=== PATIENT | female | born 1975 | race Caucasian/White ===

== ENCOUNTER 2016-11-25 09:49 | Observation (INO) | payer BC ==
--- NOTE | 2016-11-25 09:58 | EDPHY ---
H & P Stated Complaint: 2 wk abd pain;pt thinks it's pancreatitis flare up;dental surg 2 days ago Time Seen by Provider: 11/25/16 09:58 - Personal History LMP (Females 10-55): 1-7 Days Ago Current Tetanus Diphtheria and Acellular Pertussis (TDAP): Yes - Medical/Surgical History Hx Asthma: No Hx Chronic Respiratory Disease: No Hx Diabetes: No Hx Cardiac Disease: No Hx Renal Disease: No Hx Cirrhosis: No Hx Alcoholism: No Hx HIV/AIDS: No Hx Splenectomy or Spleen Trauma: No Other PMH: Hx Pancreatitis-Apr 2014 - Social History Smoking Status: Current every day smoker Constitutional: Initial Vital Signs Temperature (C) 36.7 C 11/25/16 09:50 Heart Rate 78 11/25/16 09:50 Respiratory Rate 18 11/25/16 09:50 Blood Pressure 91/68 L 11/25/16 09:50 O2 Sat (%) 97 11/25/16 09:50 O2 Delivery Mode Room Air Allergies/Adverse Reactions: penicillin G [Penicillin G] Allergy (Mild, Verified 11/25/16 09:54) Rash Sulfa (Sulfonamide Antibiotics) Allergy (Mild, Verified 11/25/16 09:54) itchy Home Medications: Medication Instructions Recorded Citalopram Hydrobromide 20 mg PO DAILY@20 06/14/16 [Citalopram HBr] Omeprazole 20 mg PO DAILY 06/14/16 oxyCODONE/APAP 5/325 [Percocet 2 tab PO Q4 PRN #6 tab 06/16/16 5/325 (*)] traZODone [traZODONE 50MG (*)] 50 mg PO HS 11/25/16 Medical Decision Making ED Course/Re-evaluation: CHIEF COMPLAINT: Abdominal pain HISTORY OF PRESENT ILLNESS: This patient is a 41 year old female with history of recurrent pancreatitis complaining of "severe abdominal pain" worsening over the last two weeks. She endorses associated nausea and vomiting, and states she fees very hot. She was admitted in June of 2016 for pancreatitis, likely triggered by a fatty meal and alcohol consumption at [facility]. She states she had dental surgery on Wednesday, two days ago, but that her pain began before then. She has been seeing alternative doctors and trying acupuncture for relief of symptoms. She tried taking Omeprazole and Percocet this morning, but vomited shortly after. She denies alcohol use in the last six months. Her admission an work-up in June included negative MRCP, GI consult for EGD to rule out peptic ulcer disease, which was normal, and abdominal ultrasound, which was negative. REVIEW OF SYSTEMS: A 10 point review of systems was performed and is negative with the exception of the elements mentioned in the history of present illness. PHYSICAL EXAM: HR, BP, O2 Sat, RR. Temp noted General Appearance: Alert, well hydrated, appropriate, and non-toxic appearing. Head: Atraumatic without scalp tenderness or obvious injury Eyes: Pupils equal, round, reactive to light and accommodation, EOMI, no trauma , no injection. Nose: Atraumatic, no rhinorrhea, clear. Throat: There is no erythema or exudates, no lesions, normal tonsils, mucus membranes moist. Neck: Supple, nontender, no lymphadenopathy. Respiratory: No retractions, no distress, no wheezes, and no accessory muscle use. Lungs are clear to auscultation bilaterally. Cardiovascular: Regular rate and rhythm, no murmurs, rubs, or gallops. Good capillary refill all extremities. Gastrointestinal: Pain in epigastrium radiating through to her back. Abdomen is soft, non-distended, no masses, no rebound, no guarding, no peritoneal signs. Musculoskeletal: Normal active ROM of all extremities, atraumatic. Neurological: Alert, appropriate, and interactive. Non-focal neuro exam. Skin: No rashes, good turgor, no nodules on palpation. Past medical history: Pancreatitis, IBS, depression Past surgical history: Dental Family history: Noncontributory Social history: Current smoker. Significant other at bedside. Past medical records reviewed, including admission for IBS in June, and for pancreatitis in April,. DIFFERENTIAL DIAGNOSIS: The differential diagnosis for the patient's abdominal pain included but was not limited to pancreatitis, cholecystitis, appendicitis, pelvic inflammatory disease, ovarian cyst, ovarian torsion, urinary tract infection, ectopic . MEDICAL DECISION MAKING: This patient is a 41 year old female with history of pancreatitis and IBS presenting with abdominal pain and associated nausea and vomiting. She has been seeking alternative treatments including acupuncture for her symptoms. Physical exam reveals pain in her epigastric area, radiating to her back. Otherwise normal exam. Plan to order labs including CBC, CHEM, and liver lipase. Due to her recent admission and workup (discussed in HPI), we will hold on imaging at this time. Plan to administer IV fluids, Dilaudid, and Ketoralac. Labs reveal high lipase in the mid 900s. Plan to admit for pancreatitis. 11:[address] Spoke with [address] service. Dr. Blandon accepts admission for pancreatitis. - Data Points Laboratory Results: Laboratory Results 11/25/16 10:00 11/25/16 10:00 11/25/16 11/25/16 11/25/16 10:00 10:00 10:00 WBC 10.86 10^3/uL H 10^3/uL (3.80-9.50) RBC 5.08 10^6/uL 10^6/uL (4.18-5.33) Hgb 15.5 g/dL g/dL (12.6-16.3) Hct 45.6 % % (38.0-47.0) MCV 89.8 fL fL (81.5-99.8) MCH 30.5 pg pg (27.9-34.1) MCHC 34.0 g/dL g/dL (32.4-36.7) RDW 12.2 % % (11.5-15.2) Plt Count 238 10^3/uL 10^3/uL (150-400) MPV 10.5 fL fL (8.7-11.7) Neut % (Auto) Not Reported Lymph % (Auto) Not Reported [place] % (Auto) Not Reported Eos % (Auto) Not Reported Baso % (Auto) Not Reported Nucleat RBC Rel Count 0.0 % % (0.0-0.2) Absolute Neuts (auto) Not Reported Absolute Lymphs (auto) Not Reported Absolute Monos (auto) Not Reported Absolute Eos (auto) Not Reported Absolute Basos (auto) Not Reported Absolute Nucleated RBC 0.00 10^3/uL 10^3/uL (0-0.01) Immature Gran % Not Reported Seg Neutrophils % 31 % % Band Neutrophils % 9 % % Lymphocytes % 29 % % Monocytes % 4 % % Eosinophils % 25 % % Basophils % 2 % % Immature Gran # Not Reported Absolute Seg Neuts 3.37 10^/uL 10^/uL (1.70-6.50) Absolute Band Neuts 0.98 10^3/uL H 10^3/uL (0.00-0.70) Absolute Lymphocytes 3.15 10^3/uL H 10^3/uL (1.00-3.00) Absolute Monocytes 0.43 10^3/uL 10^3/uL (0.30-0.80) Absolute Eosinophils 2.72 10^3/uL H 10^3/uL (0.03-0.40) Absolute Basophils 0.22 10^3/uL H 10^3/uL (0.02-0.10) Atypical Lymphocytes 3+ H Platelet Estimate ADEQUATE (ADEQ) Oval Macrocytes 1+ H Smear Review By Pending Sodium 142 mEq/L mEq/L (134-144) Potassium 4.4 mEq/L mEq/L (3.5-5.2) Chloride 105 mEq/L mEq/L (97-110) Carbon Dioxide 24 mEq/l mEq/l (22-31) Anion Gap 13 mEq/L mEq/L (8-16) BUN 11 mg/dL mg/dL (7-23) Creatinine 0.8 mg/dL mg/dL (0.6-1.0) Estimated GFR > 60 Glucose 82 mg/dL mg/dL (70-100) Calcium 9.8 mg/dL mg/dL (8.5-10.4) Total Bilirubin 0.8 mg/dL mg/dL (0.1-1.4) Conjugated Bilirubin 0.4 mg/dL mg/dL (0.0-0.5) Unconjugated Bilirubin 0.4 mg/dL mg/dL (0.0-1.1) AST 26 IU/L IU/L (14-46) ALT 33 IU/L IU/L (9-52) Alkaline Phosphatase 61 IU/L IU/L (38-126) Total Protein 7.7 g/dL g/dL (6.3-8.2) Albumin 4.6 g/dL g/dL (3.5-5.0) Lipase 933.0 IU/L H IU/L (23-300) Beta HCG, Qual NEGATIVE Medications Given: Discontinued Medications Hydromorphone HCl (Dilaudid) 1 mg IVP EDNOW ONE Stop: 11/25/16 10:11 Last Admin: 11/25/16 10:36 Dose: 1 mg Hydromorphone HCl (Dilaudid) 1 mg IVP EDNOW ONE Stop: 11/25/16 11:30 Last Admin: 11/25/16 11:29 Dose: 1 mg Sodium Chloride (Ns) 1,000 mls @ 0 mls/hr IV ONCE ONE PRN Reason: Wide Open Stop: 11/25/16 10:11 Last Admin: 11/25/16 10:37 Dose: 1,000 mls Ketorolac Tromethamine (Toradol) 30 mg IVP EDNOW ONE Stop: 11/25/16 10:11 Last Admin: 11/25/16 10:37 Dose: 30 mg Departure - Departure Disposition: [facility] Inpatient Acute Clinical Impression: Pancreatitis Qualifiers: Chronicity: chronic Pancreatitis type: other Qualified Code(s): K86.1 - Other chronic pancreatitis Condition: Fair Referrals: RACHEL LEIJA [Primary Care Provider] - As per Instructions Report Scribed for: Elan Cruz Report Scribed by: Veda Olguin Date of Report: 11/25/16 Time of Report: 11:32
[2016-11-25] MEDS ORDERED: NS 1,000 ML IV ONE (10:10)
[2016-11-25] MEDS ORDERED: HYDROmorphONE/DILAUDID 1 MG/ML SYR IVP ONE ×2 (10:10→11:29)
[2016-11-25] MEDS ORDERED: KETOROLAC 30 MG/1 ML SDV IVP ONE (10:10)
[2016-11-25 10:23] LABS: ADD DIFF? YES; ADD MORPH? NO; ADD SCAN? NO; ATYPICAL LYMPHOCYTE FLAG 10 (0-99); FRAGMENT RBC FLAG 0 (0-99); HEMATOCRIT 45.6 % (38.0-47.0); HEMOGLOBIN 15.5 g/dL (12.6-16.3); LEFT SHIFT FLG 0 (0-99); LIPEMIA HEMOLYSIS FLAG 90 (0-99); MEAN CELL HEMOGLOBIN 30.5 pg (27.9-34.1); MEAN CELL VOLUME 89.8 fL (81.5-99.8); MEAN PLATELET VOLUME 10.5 fL (8.7-11.7); PLATELET CLUMPS FLAG 0 (0-99); PLATELET COUNT 238 10^3/uL (150-400); RED BLOOD CELL COUNT 5.08 10^6/uL (4.18-5.33); RED CELL DISTRIBUTION WIDTH 12.2 % (11.5-15.2)
[2016-11-25 10:50] LABS: ALANINE AMINOTRANSFERASE 33 IU/L (9-52); ALBUMIN 4.6 g/dL (3.5-5.0); ALKALINE PHOSPHATASE 61 IU/L (38-126); ANION GAP 13 mEq/L (8-16); ASPARTATE AMINOTRANSFERASE 26 IU/L (14-46); BILIRUBIN,TOTAL 0.8 mg/dL (0.1-1.4); BILIRUBIN-CONJUGATED 0.4 mg/dL (0.0-0.5); BILIRUBIN-UNCONJUGATED 0.4 mg/dL (0.0-1.1); CALCIUM 9.8 mg/dL (8.5-10.4); CARBON DIOXIDE 24 mEq/l (22-31); CHLORIDE 105 mEq/L (97-110); CREATININE 0.8 mg/dL (0.6-1.0); GLOMERULAR FILTRATION RATE > 60; GLUCOSE 82 mg/dL (70-100); POTASSIUM 4.4 mEq/L (3.5-5.2); SODIUM 142 mEq/L (134-144); TOTAL PROTEIN 7.7 g/dL (6.3-8.2)
[2016-11-25] MEDS ORDERED: HYDROmorphONE/DILAUDID 1 MG/ML SYR ONE (11:31)
[2016-11-25 11:35] LABS: PLATELET ESTIMATE ADEQUATE (ADEQ)
[2016-11-25 11:36] LABS: MACROCYTES 1+
[2016-11-25] MEDS ORDERED: ONDANSETRON 4 MG/2 ML VIAL IVP PRN (14:03)
[2016-11-25] MEDS ORDERED: ACETAMINOPHEN 325 MG TAB PO PRN (14:03)
[2016-11-25] MEDS ORDERED: ONDANSETRON DISINTEGRATING 4 MG TAB PO PRN (14:03)
[2016-11-25] MEDS ORDERED: MBX SOLN 30 ML BOTTLE PO PRN (14:20)
[2016-11-25] MEDS ORDERED: NS 1,000 ML IV SCH (14:30)
[2016-11-25] MEDS: HYDROmorphONE/DILAUDID 1 MG/ML SYR IVP PRN ×2 (15:00→20:55)
--- NOTE | 2016-11-25 15:01 | GHP ---
[f rep st] HISTORY AND PHYSICAL DATE OF ADMISSION: 11/25/2016 CHIEF COMPLAINT: Abdominal pain. HISTORY OF PRESENT ILLNESS: Patient is a 41-year-old female, previously hospitalized 2 times for pancreatitis. First admission was in 2013, thought secondary to a high fat diet. She had a subsequent admission in June of 2016, which was unrevealing with a negative MRCP, EGD and ultrasound. 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 She was offered a CAT scan at that time, which she declined. Since that time, she has been eating a very clean diet. No alcohol since May 2016. She has been seeing a naturopathic doctor, and at one point was diagnosed with Lyme disease. She states through treatment by her, the Lyme disease symptoms have improved. She has been receiving energy work per that practitioner remotely from [place]. For the past 2 weeks, she has been complaining of epigastric pain that is hot, burning in nature, with radiation to her back. She recently underwent 2 dental surgeries for a crown, last being on Wednesday. She was prescribed azithromycin, and only took 2 doses, last Wednesday night. Had an episode of nonbilious, nonbloody emesis on Wednesday, as well as this morning after drinking a hemp protein smoothie. She noticed the symptoms can be exacerbated by her period, which she had last week. Reports chills. No fevers or sweats. No diarrhea. Had a normal bowel movement today. REVIEW OF SYSTEMS: I completed a 10-point review of systems, negative except as noted in HPI. PAST MEDICAL HISTORY: 1. depression. 2. Anxiety. SURGICAL HISTORY: Oral surgeries. SOCIAL HISTORY: Lives in [facility], has a child. No alcohol since May 2016, uses tincture of CBD every 3 days. No tobacco. FAMILY HISTORY: Father of an MS in 2003. Mother is healthy, but maternal grandmother with breast cancer. HOME MEDICATIONS: Celexa, omeprazole, trazodone, Percocet recently, after dental surgery. ALLERGIES: Penicillin, sulfas. PHYSICAL EXAMINATION: VITAL SIGNS: Temperature 36.5, blood pressure 106/67, heart rate is in the 60s, respirations 16, 92% on room air. GENERAL: Patient is well appearing, sitting up, in no acute distress. HEENT: PERRLA. EOMI. Oropharynx clear. CV: Regular rate and rhythm. No murmurs, gallops, rubs. LUNGS: Clear to auscultation bilaterally. ABDOMEN: Soft, nondistended, mild epigastric tenderness. No rebound or guarding. Quiet bowel sounds throughout. : No suprapubic or CVA tenderness. MUSCULOSKELETAL: 5/5 upper and lower extremity strength. NEURO: 2 through 12 intact. PSYCH: Alert and oriented x3. LABS: WBC 10, hemoglobin 15, hematocrit 45, platelets 238. Sodium 142, potassium 4.5, chloride 105, carbon dioxide 24, creatinine 0.8, glucose 82, calcium 9.8. Total bilirubin 0.8, AST 26, ALT 33, total protein 7.7, albumin 4.6, lipase 933. ASSESSMENT AND PLAN: 1. Acute abdominal pain: Differential includes recurrent pancreatitis, irritable bowel syndrome, gastroesophageal reflux disease. The patient was admitted in June with a thorough evaluation, including negative MRCP, EGD, and imaging. She does have an elevated lipase of 900 here. She denies alcohol. We will check triglycerides, as well as an abdominal ultrasound. 2. Acute pancreatitis: Unclear etiology. The patient denies alcohol. Imaging pending. Supportive care with IV opioids, as well as fluids. 3. Depression. Continue home medications. 4. Anxiety. Continue citalopram. DIET: N.p.o. Advance when less pain. DISPOSITION: Patient warrants observation admission given acute abdominal pain , warranting IV opioids. /[id number]/MODL MTDD
[2016-11-25 15:06] LABS: COLOR PALE YELLOW; LEUKOCYTE ESTERASE,URINE NEGATIVE (NEGATIVE); NITRITE,URINE NEGATIVE (NEGATIVE)
[2016-11-25] MEDS: HYDROmorphONE/DILAUDID 2 MG TAB PO PRN (17:28)
[2016-11-25] MEDS ORDERED: CITALOPRAM 20 MG TAB PO SCH (21:00)
[2016-11-25] MEDS ORDERED: traZODone 50 MG TAB PO SCH (21:00)
[2016-11-26] MEDS: HYDROmorphONE/DILAUDID 2 MG TAB PO PRN ×2 (00:37→12:35)
[2016-11-26] MEDS: HYDROmorphONE/DILAUDID 1 MG/ML SYR IVP PRN ×2 (05:02→14:55)
[2016-11-26] MEDS ORDERED: NON-FORMULARY NEW DRUG (Omeprazole [Omeprazole] 20 MG) PO SCH (09:00)
[2016-11-26] MEDS ORDERED: PANTOPRAZOLE SODIUM 40 MG TAB PO SCH (09:00)
[2016-11-26 09:15] VITALS: PULSE 73
[2016-11-26 13:28] VITALS: BP 98/59; RESP 16; TEMP 98; O2SAT 98
--- NOTE | 2016-11-26 15:50 | GDS ---
[f rep st] DISCHARGE SUMMARY DIAGNOSES: 1. Acute pancreatitis. 2. Abdominal pain. 3. depression. 4. Anxiety. CONSULTATIONS: None. PROCEDURES: None. HOSPITAL COURSE: A 41-year-old female with 2 previous hospitalizations for pancreatitis. First adm ission was in 2013 and was thought to be secondary to a high-fat diet. At that time, she had a nega tive MRCP, EGD, and ultrasound. Since then, she has seen 2 naturopathic doctors and follows a very clean diet. Despite this, with her menstrual period every month, she will have epigastric abdominal pain. She has heavy cramping and tension, which has been improved with Prozac. Despite this, her menstrual periods are heavy with heavy clotting and significant cramping. In the last 2 weeks, she has come with epigastric pain, which radiated through to her back. On evaluation, she was noted to have an elevated lipase at 900. She was admitted for pain control and IV fluids. Post admission, s he improved. White count was 10,000. Lipase on admission was 933 and a beta HCG was negative. The patient was able to tolerate a regular diet and desired to be discharged. She is quite aware of he r condition and watches her diet closely to avoid episodes of pain. An ultrasound of the abdomen sh owed no abnormalities of the pancreas, gallbladder, or liver. There was a 1 cm left renal cyst inci dentally noted. DISCHARGE MEDICATIONS: Her medications will include Celexa 20 mg daily, omeprazole 20 mg daily, tra zodone 50 mg h.s., and Percocet 5/325 mg tablets, #14. She is to take 2 tabs p.o. q.4-6h. p.r.n. pa in. PLAN: The patient is discharged to her home care, and she will watch her diet closely. She has bee n given referral to GI of the [facility], and an appointment has already been made for this by the john ent herself. I have also given her a referral to Jostin Thorpe, an integrative medicine doctor here in [place]. 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 I have strongly advised her to pursue this further with GI of the [facility]. It is clear that there i s a significant problem which has not been clarified yet. I have explained to her that recurrent ep isodes of pancreatitis will only be getting more episodes of pancreatitis. TIME: This discharge required 50 minutes, greater than 50% to appliance counselor and coordinate the care with her providers. /[id number]/MODL
== END 2016-11-26 16:23 | disposition home or self-care (01) ==
LOC: F1N 17:08
PROVIDERS: ADMIT Internal Medicine; ATTEND Internal Medicine Pulmonary Disease
DX: K85.90 Acute pancreatitis without necrosis or infection, unspecified (principal); R10.9 Unspecified abdominal pain; K58.9 Irritable bowel syndrome, unspecified; F32.9 Major depressive disorder, single episode, unspecified; F41.9 Anxiety disorder, unspecified; N28.1 Cyst of kidney, acquired; F17.200 Nicotine dependence, unspecified, uncomplicated; Z88.0 Allergy status to penicillin; Z88.2 Allergy status to sulfonamides
CPT/HCPCS: 76700; G0378; J1170; J1885

== ENCOUNTER 2016-11-30 01:59 | Emergency (ER) | payer BC ==
[2016-11-30 02:05] VITALS: TEMP 98.2
[2016-11-30] MEDS ORDERED: NS 1,000 ML IV ONE (02:14)
[2016-11-30] MEDS ORDERED: HYDROmorphONE/DILAUDID 1 MG/ML SYR IVP ONE (02:14)
--- NOTE | 2016-11-30 02:14 | EDPHY ---
H & P Stated Complaint: RUQ to right back pain; recent d/c for pancreatitis HPI/ROS: HPI CHIEF COMPLAINT: Abdominal pain, pancreatitis HISTORY OF PRESENT ILLNESS: This patient very pleasant 41-year-old female significant past medical history for pancreatitis, she was recently hospitalized here for acute pancreatitis, however bag to be discharged from the hospital to go to a wedding in [place]. She went to the [facility] and states that she had ongoing epigastric abdominal pain radiates to her back. She states the pain has been persistent and getting worse over the past 3-4 days. Associated nausea vomiting. No hematemesis. States pain feels exactly like her typical pancreatitis. Of the patient on 11/25 had a normal ultrasound of her abdomen. No gallstones. Lipase was 900. She denies drinking any alcohol at the wedding. States she has had a lean diet. No lower abdominal pain or urinary symptoms. No fever. Patient does tell me that her pain is 6/ 10. Had ongoing nausea vomiting today. Past Medical History: Pancreatitis, acute abdominal pain, depression Past Surgical History: No recent surgical history Social History: Denies daily use of drugs alcohol, or tobacco. Family History: Noncontributory ROS REVIEW OF SYSTEMS: A comprehensive 10 point review of systems is otherwise negative aside from elements mentioned in the history of present illness. Exam Constitutional triage nursing summary reviewed, vital signs reviewed, awake/ alert. Eyes normal conjunctivae and sclera, EOMI, PERRLA. HENT normal inspection, atraumatic, moist mucus membranes, no epistaxis, neck supple/ no meningismus, no raccoon eyes. Respiratory clear to auscultation bilaterally, normal breath sounds, no respiratory distress, no wheezing. Cardiovascular rate normal, regular rhythm, no murmur, no edema, distal pulses normal. Gastrointestinal soft, tender to palpation epigastric region, no rebound, no guarding, normal bowel sounds, no distension, no pulsatile mass. Genitourinary no CVA tenderness. Musculoskeletal no midline vertebral tenderness, full range of motion, no calf swelling, no tenderness of extremities, no meningismus, good pulses, neurovascularly intact. Skin pink, warm, & dry, no rash, skin atraumatic. Neurologic awake, alert and oriented x 3, AAOx3, moves all 4 extremities equally, motor intact, sensory intact, CN II-XII intact, normal cerebellar, normal vision, normal speech. Psychiatric normal mood/affect. Heme/Lymph/Immune no lymphadenopathy. Differential diagnosis includes but is not limited to and in no particular order : Acute on chronic pancreatitis Bowel obstruction, appendicitis, gallbladder disease, diverticulitis, colitis, enteritis, perforated viscus, gastritis, GERD , esophagitis, urinary tract infection, pyelonephritis, kidney stones Medical Decision Making: Plan for this patient IV establishment, IV fluid bolus normal saline 1 L, IV Zofran for nausea, IV Dilaudid for acute pain control. Check lipase and abdominal labs. I did review her recent lab work and ultrasound. No indication to reimage at this time. Re-evaluation: CT scan of the abdomen pelvis with IV contrast The results of the study are negative for anything acute specifically a shows constipation but no acute inflammatory change around the pancreas or pseudocyst. She does have a right ovarian cyst small. Minimal free fluid in the pelvis. The study was read by Dr. Vo. I viewed the images myself on the PACS system. 0417AM: Re-evaluation at this time. Blood work reviewed lipase is normal. Electrolytes are not disturbed. CT scan shows no acute inflammatory process. 0421AM: Re-evaluation at this time patient is resting comfortably. Re- examination abdomen is soft nontender no guarding or peritoneal signs she is not vomiting. Blood work is normal. Lipase normal CT scan negative for anything acute. She does have a gastroenterology appointment tomorrow do recommend that she keeps this. There is constipation seen on her CT scan recommend MiraLax. Drink lots of fluids return emergency room if there is any worsening symptoms includes abdominal pain, fever vomiting. She understands Source: Patient - Personal History LMP (Females 10-55): 8-14 Days Ago Current Tetanus/Diphtheria Vaccine: Unsure Current Tetanus Diphtheria and Acellular Pertussis (TDAP): Unsure - Medical/Surgical History Hx Asthma: No Hx Chronic Respiratory Disease: No Hx Diabetes: No Hx Cardiac Disease: No Hx Renal Disease: No Hx Cirrhosis: No Hx Alcoholism: No Hx HIV/AIDS: No Hx Splenectomy or Spleen Trauma: No Other PMH: Hx Pancreatitis-Apr 2014, depression, anxiety, Lyme disease. PSH: dental surgeries - Social History Smoking Status: Current some day smoker Constitutional: Initial Vital Signs Temperature (C) 36.8 C 11/30/16 02:03 Heart Rate 66 11/30/16 02:03 Respiratory Rate 16 05/22/17 02:03 Blood Pressure 128/72 H 11/30/16 02:03 O2 Sat (%) 99 11/30/16 02:03 O2 Delivery Mode Room Air Allergies/Adverse Reactions: penicillin G [Penicillin G] Allergy (Mild, Verified 11/25/16 09:54) Rash Sulfa (Sulfonamide Antibiotics) Allergy (Mild, Verified 11/25/16 09:54) itchy Home Medications: Medication Instructions Recorded Citalopram Hydrobromide 20 mg PO HS 06/14/16 [Citalopram HBr] Omeprazole 20 mg PO DAILY 06/14/16 traZODone [traZODONE 50MG (*)] 50 mg PO HS 11/25/16 oxyCODONE/APAP 5/325 [Percocet 2 tab PO Q4 PRN #14 tab 11/26/16 5/325 (*)] DIAZEPAM 11/30/16 Polyethylene Glycol 3350 [Miralax 17 gm PO DAILY #2 pkt 11/30/16 17 gm (*)] Medical Decision Making - Data Points Laboratory Results: Laboratory Results 11/30/16 02:30 11/30/16 02:30 11/30/16 11/30/16 11/30/16 02:30 02:30 02:30 WBC 10.59 10^3/uL H 10^3/uL (3.80-9.50) RBC 4.30 10^6/uL 10^6/uL (4.18-5.33) Hgb 13.1 g/dL g/dL (12.6-16.3) Hct 39.0 % % (38.0-47.0) MCV 90.7 fL fL (81.5-99.8) MCH 30.5 pg pg (27.9-34.1) MCHC 33.6 g/dL g/dL (32.4-36.7) RDW 12.2 % % (11.5-15.2) Plt Count 197 10^3/uL 10^3/uL (150-400) MPV 10.5 fL fL (8.7-11.7) Neut % (Auto) Not Reported Lymph % (Auto) Not Reported [place] % (Auto) Not Reported Eos % (Auto) Not Reported Baso % (Auto) Not Reported Nucleat RBC Rel Count 0.0 % % (0.0-0.2) Absolute Neuts (auto) Not Reported Absolute Lymphs (auto) Not Reported Absolute Monos (auto) Not Reported Absolute Eos (auto) Not Reported Absolute Basos (auto) Not Reported Absolute Nucleated RBC 0.00 10^3/uL 10^3/uL (0-0.01) Immature Gran % Not Reported Seg Neutrophils % 26 % % Band Neutrophils % 1 % % Lymphocytes % 36 % % Monocytes % 5 % % Eosinophils % 32 % % Immature Gran # Not Reported Absolute Seg Neuts 2.75 10^/uL 10^/uL (1.70-6.50) Absolute Band Neuts 0.11 10^3/uL 10^3/uL (0.00-0.70) Absolute Lymphocytes 3.81 10^3/uL H 10^3/uL (1.00-3.00) Absolute Monocytes 0.53 10^3/uL 10^3/uL (0.30-0.80) Absolute Eosinophils 3.39 10^3/uL H 10^3/uL (0.03-0.40) RBC/WBC/PLT Morphology NORMAL (NORMAL) Atypical Lymphocytes 1+ H Platelet Estimate ADEQUATE (ADEQ) Smear Review By Pending Sodium 142 mEq/L mEq/L (134-144) Potassium 4.0 mEq/L mEq/L (3.5-5.2) Chloride 103 mEq/L mEq/L (97-110) Carbon Dioxide 30 mEq/l mEq/l (22-31) Anion Gap 9 mEq/L mEq/L (8-16) BUN 8 mg/dL mg/dL (7-23) Creatinine 0.7 mg/dL mg/dL (0.6-1.0) Estimated GFR > 60 Glucose 80 mg/dL mg/dL (70-100) Calcium 9.3 mg/dL mg/dL (8.5-10.4) Total Bilirubin 0.4 mg/dL mg/dL (0.1-1.4) Conjugated Bilirubin 0.3 mg/dL mg/dL (0.0-0.5) Unconjugated Bilirubin 0.1 mg/dL mg/dL (0.0-1.1) AST 37 IU/L IU/L (14-46) ALT 40 IU/L IU/L (9-52) Alkaline Phosphatase 45 IU/L IU/L (38-126) Troponin I < 0.012 ng/mL ng/mL (0-0.034) Total Protein 7.1 g/dL g/dL (6.3-8.2) Albumin 4.3 g/dL g/dL (3.5-5.0) Lipase 239.0 IU/L IU/L (23-300) Beta HCG, Qual NEGATIVE Urine Color Urine Appearance Urine pH Ur Specific [place] Urine Protein Urine Ketones Urine Blood Urine Nitrate Urine Bilirubin Urine Urobilinogen Ur Leukocyte Esterase Urine Glucose 11/30/16 02:05 WBC RBC Hgb Hct MCV MCH MCHC RDW Plt Count MPV Neut % (Auto) Lymph % (Auto) [place] % (Auto) Eos % (Auto) Baso % (Auto) Nucleat RBC Rel Count Absolute Neuts (auto) Absolute Lymphs (auto) Absolute Monos (auto) Absolute Eos (auto) Absolute Basos (auto) Absolute Nucleated RBC Immature Gran % Seg Neutrophils % Band Neutrophils % Lymphocytes % Monocytes % Eosinophils % Immature Gran # Absolute Seg Neuts Absolute Band Neuts Absolute Lymphocytes Absolute Monocytes Absolute Eosinophils RBC/WBC/PLT Morphology Atypical Lymphocytes Platelet Estimate Smear Review By Sodium Potassium Chloride Carbon Dioxide Anion Gap BUN Creatinine Estimated GFR Glucose Calcium Total Bilirubin Conjugated Bilirubin Unconjugated Bilirubin AST ALT Alkaline Phosphatase Troponin I Total Protein Albumin Lipase Beta HCG, Qual Urine Color PALE YELLOW Urine Appearance CLEAR Urine pH 8.0 H (5.0-7.5) Ur Specific [place] 1.003 (1.002-1.030) Urine Protein NEGATIVE (NEGATIVE) Urine Ketones NEGATIVE (NEGATIVE) Urine Blood NEGATIVE (NEGATIVE) Urine Nitrate NEGATIVE (NEGATIVE) Urine Bilirubin NEGATIVE (NEGATIVE) Urine Urobilinogen NEGATIVE EU EU (0.2-1.0) Ur Leukocyte Esterase NEGATIVE (NEGATIVE) Urine Glucose NEGATIVE (NEGATIVE) Departure - Departure Disposition: Home, Routine, Self-Care Clinical Impression: Abdominal pain Qualifiers: Abdominal location: generalized Qualified Code(s): R10.84 - Generalized abdominal pain Condition: Good Instructions: Abdominal Pain (ED) Additional Instructions: 1. Eat a bland diet for next 24-48 hours. 2. Return emergency room if develops any worsening symptoms includes abdominal pain fever vomiting. 3. Your CT scan did show constipation recommend MiraLax. 4. Follow up with Gastroenterology a previously scheduled appointment tomorrow. Referrals: RACHEL LEIJA [Primary Care Provider] - As per Instructions Prescriptions: Polyethylene Glycol 3350 [Miralax 17 gm (*)] 17 gm PO DAILY #2 pkt
[2016-11-30 02:21] LABS: COLOR PALE YELLOW; LEUKOCYTE ESTERASE,URINE NEGATIVE (NEGATIVE); NITRITE,URINE NEGATIVE (NEGATIVE)
[2016-11-30] MEDS ORDERED: ONDANSETRON 4 MG/2 ML VIAL IVP ONE (02:29)
[2016-11-30 02:43] LABS: ADD DIFF? YES; ADD MORPH? NO; ADD SCAN? NO; ATYPICAL LYMPHOCYTE FLAG 0 (0-99); FRAGMENT RBC FLAG 0 (0-99); HEMOGLOBIN 13.1 g/dL (12.6-16.3); LEFT SHIFT FLG 0 (0-99); LIPEMIA HEMOLYSIS FLAG 80 (0-99); MEAN CELL HEMOGLOBIN 30.5 pg (27.9-34.1); MEAN CELL HEMOGLOBIN CONCENTR. 33.6 g/dL (32.4-36.7); MEAN CELL VOLUME 90.7 fL (81.5-99.8); MEAN PLATELET VOLUME 10.5 fL (8.7-11.7); PLATELET CLUMPS FLAG 10 (0-99); PLATELET COUNT 197 10^3/uL (150-400); RED CELL DISTRIBUTION WIDTH 12.2 % (11.5-15.2)
[2016-11-30 02:57] LABS: ALANINE AMINOTRANSFERASE 40 IU/L (9-52); ALBUMIN 4.3 g/dL (3.5-5.0); ALKALINE PHOSPHATASE 45 IU/L (38-126); ANION GAP 9 mEq/L (8-16); ASPARTATE AMINOTRANSFERASE 37 IU/L (14-46); BILIRUBIN,TOTAL 0.4 mg/dL (0.1-1.4); BILIRUBIN-CONJUGATED 0.3 mg/dL (0.0-0.5); BILIRUBIN-UNCONJUGATED 0.1 mg/dL (0.0-1.1); CALCIUM 9.3 mg/dL (8.5-10.4); CARBON DIOXIDE 30 mEq/l (22-31); CHLORIDE 103 mEq/L (97-110); CREATININE 0.7 mg/dL (0.6-1.0); GLOMERULAR FILTRATION RATE > 60; GLUCOSE 80 mg/dL (70-100); SODIUM 142 mEq/L (134-144); TOTAL PROTEIN 7.1 g/dL (6.3-8.2)
[2016-11-30 03:08] LABS: TROPONIN I < 0.012 ng/mL (0-0.034)
[2016-11-30] MEDS ORDERED: IOPAMIDOL (ISOVUE-300) 100 ML BTL ONE (03:25)
[2016-11-30 03:47] LABS: PLATELET ESTIMATE ADEQUATE (ADEQ)
[2016-11-30 04:16] VITALS: BP 103/68; PULSE 67; RESP 15; O2SAT 97
== END 2016-11-30 04:42 | disposition home or self-care (01) ==
DX: R10.84 Generalized abdominal pain (principal); F17.200 Nicotine dependence, unspecified, uncomplicated
CPT/HCPCS: 96374; J1170; J2405; Q9967

== ENCOUNTER 2016-12-11 14:23 | Emergency (ER) | payer BC ==
[2016-12-11 14:32] VITALS: RESP 16; TEMP 97.3
[2016-12-11 15:04] LABS: % IMMATURE GRANULYOCYTES 0.2 % (0.0-1.1); ABSOLUTE IMMATURE GRANULOCYTES 0.01 10^3/uL (0.00-0.10); ADD DIFF? NO; ADD MORPH? NO; ADD SCAN? NO; ATYPICAL LYMPHOCYTE FLAG 10 (0-99); FRAGMENT RBC FLAG 0 (0-99); HEMATOCRIT 42.6 % (38.0-47.0); HEMOGLOBIN 14.4 g/dL (12.6-16.3); LEFT SHIFT FLG 0 (0-99); LIPEMIA HEMOLYSIS FLAG 90 (0-99); MEAN CELL HEMOGLOBIN 30.6 pg (27.9-34.1); MEAN CELL HEMOGLOBIN CONCENTR. 33.8 g/dL (32.4-36.7); MEAN CELL VOLUME 90.4 fL (81.5-99.8); MEAN PLATELET VOLUME 10.5 fL (8.7-11.7); PLATELET CLUMPS FLAG 20 (0-99); PLATELET COUNT 226 10^3/uL (150-400); RED BLOOD CELL COUNT 4.71 10^6/uL (4.18-5.33)
[2016-12-11] MEDS ORDERED: ONDANSETRON 4 MG/2 ML VIAL IVP ONE (15:06)
[2016-12-11] MEDS ORDERED: NS 1,000 ML IV ONE (15:06)
--- NOTE | 2016-12-11 15:06 | EDPHY ---
H & P Stated Complaint: left upper abdomianl pain, vomiting diarrhea HX of pancreatitis Time Seen by Provider: 12/11/16 14:48 HPI/ROS: Chief Complaint: Abdominal pain HPI: A 41-year-old female with a history of recurrent idiopathic pancreatitis since 2013 presenting with worsening abdominal pain yesterday and today. She has also had some diarrhea and vomiting associated with this. Pain is about a 7 /10. She went to see her primary care physician today sent in for further evaluation. Denies any melena or hematochezia. No hematemesis. The pain is described in the epigastrium radiating to her back. Stool is loose to watery. Multiple times a day. She has decreased her oxycodone down to 1/2 5/325 per day. This is down from 4 a day for about 3 weeks ago. She does have a thread spooler who is currently evaluating her for this. No fevers or chills. No chest pain or shortness of breath. There are no aggravating or alleviating factors. Patient also states her last menstrual period is now and has noted that she gets flares of her pancreatitis when she has her period. Does not have a history of endometriosis that she is aware of ROS: 10 point Review of Systems is negative except as noted in the HPI. PMH: Idiopathic pancreatitis, depression Medications: Oxycodone and citalopram Allergies: Penicillin and sulfa Social History: No smoking, no alcohol, no recreational drug use Family History: non-contributory Physical Exam: Gen: Awake, Alert, No Distress HEENT: Nose: no rhinorrhea Eyes: PERRLA, EOMI Mouth: Moist mucosa Neck: Supple, no JVD Chest: nontender, lungs clear to auscultation Heart: S1, S2 normal, no murmur Abd: Soft, moderate epigastric tenderness with left upper quadrant tenderness, no right upper quadrant tenderness, some voluntary guarding in the epigastrium, no lower abdominal tenderness. Back: no CVA tenderness, no midline tenderness Ext: no edema, non-tender Skin: no rash Neuro: CN II-XII intact, Sensation grossly intact, Strength 5/5 in bilateral upper and lower extremities - Personal History LMP (Females 10-55): Now Current Tetanus Diphtheria and Acellular Pertussis (TDAP): Yes - Medical/Surgical History Hx Asthma: No Hx Chronic Respiratory Disease: No Hx Diabetes: No Hx Cardiac Disease: No Hx Renal Disease: No Hx Cirrhosis: No Hx Alcoholism: No Hx HIV/AIDS: No Hx Splenectomy or Spleen Trauma: No Other PMH: Hx Pancreatitis-Apr 2014, depression, anxiety, Lyme disease. PSH: dental surgeries - Social History Smoking Status: Current some day smoker Constitutional: Initial Vital Signs Temperature (C) 36.3 C 12/11/16 14:29 Heart Rate 70 12/11/16 14:29 Respiratory Rate 16 12/11/16 14:29 Blood Pressure 106/71 12/11/16 14:29 O2 Sat (%) 97 12/11/16 14:29 O2 Delivery Mode Room Air Allergies/Adverse Reactions: penicillin G [Penicillin G] Allergy (Mild, Verified 11/25/16 09:54) Rash Sulfa (Sulfonamide Antibiotics) Allergy (Mild, Verified 11/25/16 09:54) itchy Home Medications: Medication Instructions Recorded Citalopram Hydrobromide 20 mg PO HS 06/14/16 [Citalopram HBr] Omeprazole 20 mg PO DAILY 06/14/16 traZODone [traZODONE 50MG (*)] 50 mg PO HS 11/25/16 oxyCODONE/APAP 5/325 [Percocet 2 tab PO Q4 PRN #14 tab 11/26/16 5/325 (*)] Polyethylene Glycol 3350 [Miralax 17 gm PO DAILY #2 pkt 11/30/16 17 gm (*)] Medical Decision Making ED Course/Re-evaluation: Patient's blood work is normal. Lipase is normal. Liver functions normal. CBC is normal. She is not . Urinalysis shows hematuria consistent with her menses. Patient's pain is significantly better. Repeat examination shows a soft benign abdomen. There is no evidence of acute inflammation or infection at this time. Will discharge with follow up with thread spooler next week, return for worsening. - Data Points Laboratory Results: Laboratory Results 12/11/16 14:50 12/11/16 14:50 12/11/16 12/11/16 12/11/16 15:50 14:50 14:50 WBC RBC Hgb Hct MCV MCH MCHC RDW Plt Count MPV Neut % (Auto) Lymph % (Auto) [place] % (Auto) Eos % (Auto) Baso % (Auto) Nucleat RBC Rel Count Absolute Neuts (auto) Absolute Lymphs (auto) Absolute Monos (auto) Absolute Eos (auto) Absolute Basos (auto) Absolute Nucleated RBC Immature Gran % Immature Gran # Sodium 140 mEq/L mEq/L (134-144) Potassium 4.5 mEq/L mEq/L (3.5-5.2) Chloride 105 mEq/L mEq/L (97-110) Carbon Dioxide 24 mEq/l mEq/l (22-31) Anion Gap 11 mEq/L mEq/L (8-16) BUN 8 mg/dL mg/dL (7-23) Creatinine 0.7 mg/dL mg/dL (0.6-1.0) Estimated GFR > 60 Glucose 82 mg/dL mg/dL (70-100) Calcium 9.7 mg/dL mg/dL (8.5-10.4) Total Bilirubin 0.6 mg/dL mg/dL (0.1-1.4) Conjugated Bilirubin 0.3 mg/dL mg/dL (0.0-0.5) Unconjugated Bilirubin 0.3 mg/dL mg/dL (0.0-1.1) AST 28 IU/L IU/L (14-46) ALT 47 IU/L IU/L (9-52) Alkaline Phosphatase 56 IU/L IU/L (38-126) Total Protein 7.9 g/dL g/dL (6.3-8.2) Albumin 4.8 g/dL g/dL (3.5-5.0) Lipase 275.0 IU/L IU/L (23-300) Beta HCG, Qual NEGATIVE Urine Color PALE YELLOW Urine Appearance CLEAR Urine pH 6.0 (5.0-7.5) Ur Specific [place] 1.002 (1.002-1.030) Urine Protein NEGATIVE (NEGATIVE) Urine Ketones NEGATIVE (NEGATIVE) Urine Blood 2+ H (NEGATIVE) Urine Nitrate NEGATIVE (NEGATIVE) Urine Bilirubin NEGATIVE (NEGATIVE) Urine Urobilinogen NEGATIVE EU EU (0.2-1.0) Ur Leukocyte Esterase NEGATIVE (NEGATIVE) Urine RBC 3-5 /hpf H /hpf (0-3) Urine WBC 1-3 /hpf /hpf (0-3) Ur Epithelial Cells TRACE /lpf /lpf (NONE-1+) Urine Glucose NEGATIVE (NEGATIVE) 12/11/16 14:50 WBC 6.11 10^3/uL 10^3/uL (3.80-9.50) RBC 4.71 10^6/uL 10^6/uL (4.18-5.33) Hgb 14.4 g/dL g/dL (12.6-16.3) Hct 42.6 % % (38.0-47.0) MCV 90.4 fL fL (81.5-99.8) MCH 30.6 pg pg (27.9-34.1) MCHC 33.8 g/dL g/dL (32.4-36.7) RDW 12.0 % % (11.5-15.2) Plt Count 226 10^3/uL 10^3/uL (150-400) MPV 10.5 fL fL (8.7-11.7) Neut % (Auto) 48.5 % % (39.3-74.2) Lymph % (Auto) 33.6 % % (15.0-45.0) [place] % (Auto) 5.7 % % (4.5-13.0) Eos % (Auto) 11.0 % H % (0.6-7.6) Baso % (Auto) 1.0 % % (0.3-1.7) Nucleat RBC Rel Count 0.0 % % (0.0-0.2) Absolute Neuts (auto) 2.97 10^3/uL 10^3/uL (1.70-6.50) Absolute Lymphs (auto) 2.05 10^3/uL 10^3/uL (1.00-3.00) Absolute Monos (auto) 0.35 10^3/uL 10^3/uL (0.30-0.80) Absolute Eos (auto) 0.67 10^3/uL H 10^3/uL (0.03-0.40) Absolute Basos (auto) 0.06 10^3/uL 10^3/uL (0.02-0.10) Absolute Nucleated RBC 0.00 10^3/uL 10^3/uL (0-0.01) Immature Gran % 0.2 % % (0.0-1.1) Immature Gran # 0.01 10^3/uL 10^3/uL (0.00-0.10) Sodium Potassium Chloride Carbon Dioxide Anion Gap BUN Creatinine Estimated GFR Glucose Calcium Total Bilirubin Conjugated Bilirubin Unconjugated Bilirubin AST ALT Alkaline Phosphatase Total Protein Albumin Lipase Beta HCG, Qual Urine Color Urine Appearance Urine pH Ur Specific [place] Urine Protein Urine Ketones Urine Blood Urine Nitrate Urine Bilirubin Urine Urobilinogen Ur Leukocyte Esterase Urine RBC Urine WBC Ur Epithelial Cells Urine Glucose Medications Given: Discontinued Medications Hydromorphone HCl (Dilaudid) 0.5 mg IVP EDNOW ONE Stop: 12/11/16 15:55 Last Admin: 12/11/16 16:03 Dose: 0.5 mg Sodium Chloride (Ns) 1,000 mls @ 0 mls/hr IV ONCE ONE PRN Reason: Wide Open Stop: 12/11/16 15:07 Last Admin: 12/11/16 15:07 Dose: 1,000 mls Morphine Sulfate (Morphine) 4 mg IVP ONCE ONE Stop: 12/11/16 15:07 Last Admin: 12/11/16 15:18 Dose: 4 mg Ondansetron HCl (Zofran) 4 mg IVP EDNOW ONE Stop: 12/11/16 15:07 Last Admin: 12/11/16 15:18 Dose: 4 mg Departure - Departure Disposition: Home, Routine, Self-Care Clinical Impression: Abdominal pain Condition: Good Instructions: Abdominal Pain (ED), Chronic Abdominal Pain (ED) Additional Instructions: Follow up with thread spooler early next week for re-evaluation. Return to the emergency depart for increasing pain, uncontrolled nausea vomiting , fevers, chills, or any other concerns. Referrals: Abby Delong [Primary Care Provider] - As per Instructions
[2016-12-11 15:28] LABS: ALANINE AMINOTRANSFERASE 47 IU/L (9-52); ALBUMIN 4.8 g/dL (3.5-5.0); ALKALINE PHOSPHATASE 56 IU/L (38-126); ANION GAP 11 mEq/L (8-16); ASPARTATE AMINOTRANSFERASE 28 IU/L (14-46); BILIRUBIN,TOTAL 0.6 mg/dL (0.1-1.4); BILIRUBIN-CONJUGATED 0.3 mg/dL (0.0-0.5); BILIRUBIN-UNCONJUGATED 0.3 mg/dL (0.0-1.1); CALCIUM 9.7 mg/dL (8.5-10.4); CARBON DIOXIDE 24 mEq/l (22-31); CHLORIDE 105 mEq/L (97-110); CREATININE 0.7 mg/dL (0.6-1.0); GLOMERULAR FILTRATION RATE > 60; GLUCOSE 82 mg/dL (70-100); POTASSIUM 4.5 mEq/L (3.5-5.2); SODIUM 140 mEq/L (134-144); TOTAL PROTEIN 7.9 g/dL (6.3-8.2)
[2016-12-11] MEDS ORDERED: HYDROmorphONE/DILAUDID 1 MG/ML SYR IVP ONE (15:54)
[2016-12-11 16:02] LABS: COLOR PALE YELLOW; LEUKOCYTE ESTERASE,URINE NEGATIVE (NEGATIVE); NITRITE,URINE NEGATIVE (NEGATIVE)
[2016-12-11 16:54] VITALS: BP 101/59; PULSE 63; O2SAT 96
== END 2016-12-11 16:54 | disposition home or self-care (01) ==
DX: R10.13 Epigastric pain (principal); R10.12 Left upper quadrant pain; F17.200 Nicotine dependence, unspecified, uncomplicated; R11.10 Vomiting, unspecified; R19.7 Diarrhea, unspecified
CPT/HCPCS: 96374; J1170; J2405

== ENCOUNTER 2017-02-05 14:12 | Emergency (ER) | payer BC ==
[2017-02-05 14:30] VITALS: TEMP 98.2
[2017-02-05] MEDS ORDERED: HYDROmorphONE/DILAUDID 1 MG/ML SYR IVP ONE (15:28)
[2017-02-05] MEDS ORDERED: NS 1,000 ML IV ONE ×2 (15:28→16:24)
[2017-02-05] MEDS ORDERED: ONDANSETRON 4 MG/2 ML VIAL IVP ONE (15:28)
--- NOTE | 2017-02-05 15:28 | EDPHY ---
H & P Stated Complaint: EPIGASTRIC PAIN , HX OF PANCREATITIS HPI/ROS: CHIEF COMPLAINT: Abdominal pain, history of pancreatitis HISTORY OF PRESENT ILLNESS: Patient complains epigastric abdominal pain. Moderate to severe pain that has worsened overnight after eating a meal at a restaurant. Nausea with some vomiting. No bloody emesis. No bloody stools or constipation. No diarrhea. No trauma or injury. No chest pain or shortness of breath. Does have a history of chronic, idiopathic pancreatitis. She has been evaluated for this multiple times, and has been admitted twice in the past. She went to her primary care physician 1st, and they sent her here due to the level of pain in the likelihood of admission. She does not use or abuse alcohol. She does not have a history of hypertriglyceridemia. She has no other associated complaints or modifying factors. REVIEW OF SYSTEMS: Ten systems reviewed and are negative unless otherwise noted in the HPI PAST MEDICAL HISTORY: Reportedly diagnosed with Lyme disease. Chronic pancreatitis, idiopathic SOCIAL HISTORY: Nonsmoker. Lives here in [place] FAMILY HISTORY: Noncontributory EXAMINATION General Appearance: Alert, no distress Head: normocephalic, atraumatic Eyes: Pupils equal and round, no conjunctival pallor or injection ENT, Mouth: Mucous membranes moist. Uvula midline. Neck: Normal inspection, supple, non-tender Respiratory: Lungs are clear to auscultation. No wheeze, rhonchi or crackles Cardiovascular: Regular rate and rhythm. No murmur. Pulses intact distally. Gastrointestinal: Abdomen is soft. Moderate tenderness in the epigastrium right upper quadrant. No distention. No rigidity. No tympany. No CVA tenderness. Back: non-tender, no bony abnormalities Neurological: A&O, nonfocal, normal gait Skin: Warm and dry, no rash Extremities: Nontender, no pedal edema Psychiatric: Mood and affect normal DIFFERENTIAL DIAGNOSES: Including but not limited to acute pancreatitis, chronic pancreatitis, hepatitis , colitis, diverticulitis, irritable bowel, gastritis, duodenitis MDM: 3:28 p.m. Epigastric abdominal pain patient with history of pancreatitis. She feels this is consistent with her previous episodes. She would like a GI cocktail after pain improved. She says that this has helped in the past. She is resting comfortably in no acute distress. Nonacute abdominal examination. I have reviewed the patient's previous admission and CT scan. The CT scan suggested a more likely diagnosis of gastroduodenitis, which does clinically fit her examination. 4:20 p.m. Laboratory studies are unremarkable. I re-examined the patient. Her pain is improving. She still feels minimally nauseated. She just received her GI cocktail. Abdominal exam remains benign. Suspect gastritis versus pancreatitis. Provide a 2nd L of IV fluid, carafate and another dose of pain medication and re-evaluate for disposition. 4:55 p.m. I have re-evaluated the patient. She is resting comfortably in no acute distress. Her pain is improving. I have ordered care faint she is currently getting that. Plan for discharge home with addition of Carafate to her regimen. We discussed avoiding medications 2 hours pre and post ingestion of the care fate. She is to return to the ER for any worsening pain, fever, vomiting or intolerance of intake of liquids. She is to adhere to clear liquids only over the next 1-2 days. Follow up with her primary care and GI physicians early next week. She is comfortable with this plan and discharged home stable condition. SUPERVISION: Patient was evaluated in conjunction with the supervising physician. Please see their note for details. Source: Patient, Old records Exam Limitations: No limitations - Personal History LMP (Females 10-55): 22-28 Days Ago Current Tetanus Diphtheria and Acellular Pertussis (TDAP): Yes - Medical/Surgical History Hx Asthma: No Hx Chronic Respiratory Disease: No Hx Diabetes: No Hx Cardiac Disease: No Hx Renal Disease: No Hx Cirrhosis: No Hx Alcoholism: No Hx HIV/AIDS: No Hx Splenectomy or Spleen Trauma: No Other PMH: Hx Pancreatitis-Apr 2014, depression, anxiety, Lyme disease. PSH: dental surgeries - Social History Smoking Status: Current some day smoker Constitutional: Initial Vital Signs Temperature (C) 98.2 F 02/05/17 14:19 Heart Rate 49 L 02/05/17 14:19 Respiratory Rate 18 02/05/17 14:19 Blood Pressure 108/61 02/05/17 14:19 O2 Sat (%) 98 02/05/17 14:19 O2 Delivery Mode Room Air Allergies/Adverse Reactions: penicillin G [Penicillin G] Allergy (Mild, Verified 02/05/17 14:18) Rash Sulfa (Sulfonamide Antibiotics) Allergy (Mild, Verified 02/05/17 14:18) itchy Home Medications: Medication Instructions Recorded Citalopram Hydrobromide 20 mg PO HS 06/14/16 [Citalopram HBr] Omeprazole 20 mg PO DAILY 06/14/16 traZODone [traZODONE 50MG (*)] 50 mg PO HS 11/25/16 oxyCODONE/APAP 5/325 [Percocet 2 tab PO Q4 PRN #14 tab 11/26/16 5/325 (*)] Ondansetron Odt [Zofran Odt 4 mg 4 mg PO Q6 PRN #12 tab 02/05/17 (*)] Sucralfate [Carafate Oral Liquid] 10 ml PO TID PRN #1 btl 02/05/17 Medical Decision Making - Data Points Laboratory Results: Laboratory Results 02/05/17 15:40 02/05/17 15:40 02/05/17 02/05/17 02/05/17 15:40 15:40 15:40 WBC 6.42 10^3/uL 10^3/uL (3.80-9.50) RBC 4.00 10^6/uL L 10^6/uL (4.18-5.33) Hgb 12.5 g/dL L g/dL (12.6-16.3) Hct 37.0 % L % (38.0-47.0) MCV 92.5 fL fL (81.5-99.8) MCH 31.3 pg pg (27.9-34.1) MCHC 33.8 g/dL g/dL (32.4-36.7) RDW 12.7 % % (11.5-15.2) Plt Count 194 10^3/uL 10^3/uL (150-400) MPV 11.1 fL fL (8.7-11.7) Neut % (Auto) 53.7 % % (39.3-74.2) Lymph % (Auto) 34.7 % % (15.0-45.0) [place] % (Auto) 6.5 % % (4.5-13.0) Eos % (Auto) 3.9 % % (0.6-7.6) Baso % (Auto) 0.9 % % (0.3-1.7) Nucleat RBC Rel Count 0.0 % % (0.0-0.2) Absolute Neuts (auto) 3.44 10^3/uL 10^3/uL (1.70-6.50) Absolute Lymphs (auto) 2.23 10^3/uL 10^3/uL (1.00-3.00) Absolute Monos (auto) 0.42 10^3/uL 10^3/uL (0.30-0.80) Absolute Eos (auto) 0.25 10^3/uL 10^3/uL (0.03-0.40) Absolute Basos (auto) 0.06 10^3/uL 10^3/uL (0.02-0.10) Absolute Nucleated RBC 0.00 10^3/uL 10^3/uL (0-0.01) Immature Gran % 0.3 % % (0.0-1.1) Immature Gran # 0.02 10^3/uL 10^3/uL (0.00-0.10) Sodium 140 mEq/L mEq/L (134-144) Potassium 4.3 mEq/L mEq/L (3.5-5.2) Chloride 106 mEq/L mEq/L (97-110) Carbon Dioxide 24 mEq/l mEq/l (22-31) Anion Gap 10 mEq/L mEq/L (8-16) BUN 10 mg/dL mg/dL (7-23) Creatinine 0.8 mg/dL mg/dL (0.6-1.0) Estimated GFR > 60 Glucose 76 mg/dL mg/dL (70-100) Calcium 9.4 mg/dL mg/dL (8.5-10.4) Total Bilirubin 0.5 mg/dL mg/dL (0.1-1.4) Conjugated Bilirubin 0.2 mg/dL mg/dL (0.0-0.5) Unconjugated Bilirubin 0.3 mg/dL mg/dL (0.0-1.1) AST 20 IU/L IU/L (14-46) ALT 28 IU/L IU/L (9-52) Alkaline Phosphatase 41 IU/L IU/L (38-126) Total Protein 6.9 g/dL g/dL (6.3-8.2) Albumin 4.2 g/dL g/dL (3.5-5.0) Lipase 65.0 IU/L IU/L (23-300) Beta HCG, Qual NEGATIVE Medications Given: Discontinued Medications Al Hydroxide/Mg Hydroxide (Maalox Susp) 30 ml PO ONCE ONE Stop: 02/05/17 15:40 Last Admin: 02/05/17 15:51 Dose: 30 ml Hydromorphone HCl (Dilaudid) 0.5 mg IVP EDNOW ONE Stop: 02/05/17 15:29 Last Admin: 02/05/17 15:48 Dose: 0.5 mg Hyoscyamine Sulfate (Levsin, Hyomax-Sl) 0.25 mg PO ONCE ONE Stop: 02/05/17 15:40 Last Admin: 02/05/17 15:51 Dose: 0.25 mg Sodium Chloride (Ns) 1,000 mls @ 0 mls/hr IV ONCE ONE; Wide Open PRN Reason: Protocol Stop: 02/05/17 15:29 Last Admin: 02/05/17 15:30 Dose: 1,000 mls Lidocaine (Lidocaine 2% Viscous) 15 ml PO ONCE ONE Stop: 02/05/17 15:40 Last Admin: 02/05/17 15:51 Dose: 15 ml Ondansetron HCl (Zofran) 4 mg IVP EDNOW ONE Stop: 02/05/17 15:29 Last Admin: 02/05/17 15:51 Dose: 4 mg Departure - Departure Disposition: Home, Routine, Self-Care Clinical Impression: Epigastric pain Condition: Good Instructions: Gastritis (ED), Pancreatitis (ED) Additional Instructions: 1. Clear liquids for the next 2 days 2. Carafate as prescribed as discussed as needed 3. Contact primary care physician and GI physician on Wednesday 4. Return to ER for worsening pain, fever, nausea vomiting Referrals: RACHEL LEIJA [Primary Care Provider] - As per Instructions Prescriptions: Ondansetron Odt [Zofran Odt 4 mg (*)] 4 mg PO Q6 PRN #12 tab PRN Reason: Nausea/Vomiting, Use 1st Sucralfate [Carafate Oral Liquid] 10 ml PO TID PRN #1 btl PRN Reason: Pain, Mild
[2017-02-05] MEDS ORDERED: LIDOCAINE 2% VISCOUS 15 ML UDCUP PO ONE (15:39)
[2017-02-05] MEDS ORDERED: HYOSCYAMINE SULFATE 0.125 MG TAB PO ONE (15:39)
[2017-02-05] MEDS ORDERED: MAG HYDROX/AL HYDROX/SIMETH 30 ML UDCUP PO ONE (15:39)
[2017-02-05 15:49] LABS: % IMMATURE GRANULYOCYTES 0.3 % (0.0-1.1); ABSOLUTE IMMATURE GRANULOCYTES 0.02 10^3/uL (0.00-0.10); ADD DIFF? NO; ADD MORPH? NO; ADD SCAN? NO; ATYPICAL LYMPHOCYTE FLAG 0 (0-99); FRAGMENT RBC FLAG 0 (0-99); HEMOGLOBIN 12.5 g/dL (12.6-16.3); LEFT SHIFT FLG 0 (0-99); LIPEMIA HEMOLYSIS FLAG 90 (0-99); MEAN CELL HEMOGLOBIN 31.3 pg (27.9-34.1); MEAN CELL HEMOGLOBIN CONCENTR. 33.8 g/dL (32.4-36.7); MEAN CELL VOLUME 92.5 fL (81.5-99.8); MEAN PLATELET VOLUME 11.1 fL (8.7-11.7); PLATELET CLUMPS FLAG 0 (0-99); PLATELET COUNT 194 10^3/uL (150-400); RED CELL DISTRIBUTION WIDTH 12.7 % (11.5-15.2)
[2017-02-05 16:07] LABS: ALANINE AMINOTRANSFERASE 28 IU/L (9-52); ALBUMIN 4.2 g/dL (3.5-5.0); ALKALINE PHOSPHATASE 41 IU/L (38-126); ANION GAP 10 mEq/L (8-16); ASPARTATE AMINOTRANSFERASE 20 IU/L (14-46); BILIRUBIN,TOTAL 0.5 mg/dL (0.1-1.4); BILIRUBIN-CONJUGATED 0.2 mg/dL (0.0-0.5); BILIRUBIN-UNCONJUGATED 0.3 mg/dL (0.0-1.1); CALCIUM 9.4 mg/dL (8.5-10.4); CARBON DIOXIDE 24 mEq/l (22-31); CHLORIDE 106 mEq/L (97-110); CREATININE 0.8 mg/dL (0.6-1.0); GLOMERULAR FILTRATION RATE > 60; GLUCOSE 76 mg/dL (70-100); POTASSIUM 4.3 mEq/L (3.5-5.2); SODIUM 140 mEq/L (134-144); TOTAL PROTEIN 6.9 g/dL (6.3-8.2)
[2017-02-05] MEDS ORDERED: fentaNYL 100 MCG/2 ML INJ IVP ONE (16:24)
[2017-02-05] MEDS ORDERED: SUCRALFATE 1 GM/10 ML UDCUP PO ONE (16:27)
[2017-02-05 17:20] VITALS: BP 89/53; PULSE 54; RESP 16; O2SAT 97
== END 2017-02-05 17:17 | disposition home or self-care (01) ==
DX: R10.13 Epigastric pain (principal); F17.200 Nicotine dependence, unspecified, uncomplicated; R11.2 Nausea with vomiting, unspecified
CPT/HCPCS: 96374; J1170; J2405; J3010

== ENCOUNTER 2017-04-12 23:07 | Emergency (ER) | payer BC ==
[2017-04-12 23:12] VITALS: TEMP 98.6
--- NOTE | 2017-04-12 23:40 | EDPHY ---
H & P Stated Complaint: PANCRETITIS FLAIR, VOMITING ABD PAIN - Personal History LMP (Females 10-55): Now Current Tetanus/Diphtheria Vaccine: Yes Current Tetanus Diphtheria and Acellular Pertussis (TDAP): Yes - Medical/Surgical History Hx Asthma: No Hx Chronic Respiratory Disease: No Hx Diabetes: No Hx Cardiac Disease: No Hx Renal Disease: No Hx Cirrhosis: No Hx Alcoholism: No Hx HIV/AIDS: No Hx Splenectomy or Spleen Trauma: No Other PMH: Hx Pancreatitis-Apr 2014, depression, anxiety, Lyme disease. PSH: dental surgeries - Social History Smoking Status: Current some day smoker Time Seen by Provider: 04/12/17 23:18 HPI/ROS: CHIEF COMPLAINT: "my pancreatitis is flared up" HISTORY OF PRESENT ILLNESS: 41-year-old female with history of idiopathic chronic pancreatitis complaining of epigastric discomfort radiating to her back since 7:00 p.m. this evening. Atraumatic. Positive nausea. No vomiting. Patient has history of celiac plexus block performed 03/08/2017 at [facility]. She has been by and large off of chronic opiates for the past 2 weeks. Pain feels similar to prior pancreatitis flares. Bowel movements have been normal. No dyspnea. No chest pain. No recent URI symptoms. REVIEW OF SYSTEMS: A ten point review of systems was performed and is negative with the exception of the items mentioned in the HPI PAST MEDICAL & SURGICAL HISTORY: Idiopathic chronic pancreatitis. Lyme disease. SOCIAL HISTORY: nonsmoker PHYSICAL EXAM (Prior to examination, patient consented to physical exam, hands were washed and my usual and customary physical exam procedures followed) 1) GENERAL: Well-developed, well-nourished, alert and oriented. Appears uncomfortable 2) HEAD: Normocephalic, atraumatic 3) HEENT: Pupils equal, round, reactive to light bilaterally. Sclera anicteric. Nasopharynx, oropharynx, clear, no lesions. moist mucous membranes 4) NECK: Full range of motion, no meningeal signs. 5) LUNGS: Clear auscultation bilaterally, no wheezes, no rhonchi, no retractions. 6) HEART: Regular rate and rhythm, no murmur, no heave, no gallop. 7) ABDOMEN: Guarding epigastrium, tender to palpation epigastrium, positive Dominguez's. Negative McBurney's, negative peritoneal sign., 8) MUSCULOSKELETAL: Moving all extremities, no focal areas of tenderness, no obvious trauma. No peripheral edema or discoloration. 9) BACK: No CVA tenderness, no midline vertebral tenderness, no fluctuance, no step-off, no obvious trauma, no visual or palpable abnormality. 10) SKIN: No rash, no petechiae. 11) Psychiatric: Patient is oriented X 3, there is no agitation. DIFFERENTIAL DIAGNOSIS: In no particular order, including but not limited to biliary colic, cholecystitis, peptic ulcer disease, pancreatitis, and gastroenteritis. This is a partial list of diagnoses considered. These considerations are based on history, physical exam, past history and reassessment. (Mahesh Boss) Constitutional: Initial Vital Signs Temperature (C) 37.0 C 04/12/17 23:08 Heart Rate 89 04/12/17 23:08 Respiratory Rate 18 04/12/17 23:08 Blood Pressure 95/65 L 04/12/17 23:08 O2 Sat (%) 95 04/12/17 23:08 O2 Delivery Mode Room Air,Humidified Face Tent Allergies/Adverse Reactions: penicillin G [Penicillin G] Allergy (Mild, Verified 04/12/17 23:12) Rash Sulfa (Sulfonamide Antibiotics) Allergy (Mild, Verified 04/12/17 23:12) itchy Home Medications: Medication Instructions Recorded traZODone [traZODONE 50MG (*)] 50 mg PO HS 11/25/16 Ondansetron Odt [Zofran Odt 4 mg 4 mg PO Q6 PRN #12 tab 02/05/17 (*)] Sucralfate [Carafate Oral Liquid] 10 ml PO TID PRN #1 btl 02/05/17 Citalopram [CeleXA] 20 mg PO 04/12/17 Medical Decision Making - Diagnostics Imaging Results: Imaging Impressions Abdomen Ultrasound 04/13/17 00:05 Impression: Normal right upper quadrant ultrasound. Dr. Brooke discussed these findings by telephone with Dr. New Pradhan on 04/13 at 00:43. ED Course/Re-evaluation: 11:43 p.m.: Old medical records reviewed, patient has prior history of similar. Will obtain ultrasound of gallbladder.Care of patient under supervision of secondary supervising physician Dr Pradhan . Midnight: Care turned over to Dr Pradhan. (Karyn,Mahesh Silva) Other Provider: 0020 care assumed by me from VINICIO Boss pending right upper quadrant ultrasound results. 0045 right upper quadrant ultrasound is normal per Dr. Brooke. Symptoms are more consistent with gastritis, duodenitis. She is feeling better here. I had a long conversation with her plan will be for discharge with follow-up with her cabin crew. (New Pradhan) - Data Points Laboratory Results: Laboratory Results 04/12/17 23:20 04/12/17 23:20 04/12/17 04/12/17 04/12/17 23:20 23:20 23:20 WBC 9.12 10^3/uL 10^3/uL (3.80-9.50) RBC 4.29 10^6/uL 10^6/uL (4.18-5.33) Hgb 13.5 g/dL g/dL (12.6-16.3) Hct 40.5 % % (38.0-47.0) MCV 94.4 fL fL (81.5-99.8) MCH 31.5 pg pg (27.9-34.1) MCHC 33.3 g/dL g/dL (32.4-36.7) RDW 13.2 % % (11.5-15.2) Plt Count 260 10^3/uL 10^3/uL (150-400) MPV 9.7 fL fL (8.7-11.7) Neut % (Auto) 55.9 % % (39.3-74.2) Lymph % (Auto) 35.4 % % (15.0-45.0) [place] % (Auto) 5.7 % % (4.5-13.0) Eos % (Auto) 1.9 % % (0.6-7.6) Baso % (Auto) 0.8 % % (0.3-1.7) Nucleat RBC Rel Count 0.0 % % (0.0-0.2) Absolute Neuts (auto) 5.10 10^3/uL 10^3/uL (1.70-6.50) Absolute Lymphs (auto) 3.23 10^3/uL H 10^3/uL (1.00-3.00) Absolute Monos (auto) 0.52 10^3/uL 10^3/uL (0.30-0.80) Absolute Eos (auto) 0.17 10^3/uL 10^3/uL (0.03-0.40) Absolute Basos (auto) 0.07 10^3/uL 10^3/uL (0.02-0.10) Absolute Nucleated RBC 0.00 10^3/uL 10^3/uL (0-0.01) Immature Gran % 0.3 % % (0.0-1.1) Immature Gran # 0.03 10^3/uL 10^3/uL (0.00-0.10) Sodium 134 mEq/L mEq/L (134-144) Potassium 4.3 mEq/L mEq/L (3.5-5.2) Chloride 98 mEq/L mEq/L (97-110) Carbon Dioxide 27 mEq/l mEq/l (22-31) Anion Gap 9 mEq/L mEq/L (8-16) BUN 13 mg/dL mg/dL (7-23) Creatinine 0.7 mg/dL mg/dL (0.6-1.0) Estimated GFR > 60 Glucose 83 mg/dL mg/dL (70-100) Calcium 9.6 mg/dL mg/dL (8.5-10.4) Total Bilirubin 0.3 mg/dL mg/dL (0.1-1.4) Conjugated Bilirubin 0.2 mg/dL mg/dL (0.0-0.5) Unconjugated Bilirubin 0.1 mg/dL mg/dL (0.0-1.1) AST 16 IU/L IU/L (14-46) ALT 29 IU/L IU/L (9-52) Alkaline Phosphatase 51 IU/L IU/L (38-126) Total Protein 7.4 g/dL g/dL (6.3-8.2) Albumin 4.2 g/dL g/dL (3.5-5.0) Lipase 208 IU/L IU/L (23-300) Beta HCG, Qual NEGATIVE Medications Given: Discontinued Medications Al Hydroxide/Mg Hydroxide (Maalox Susp) 30 ml PO ONCE ONE Stop: 04/13/17 00:15 Last Admin: 04/13/17 00:33 Dose: 30 ml Fentanyl (Sublimaze) 100 mcg IVP EDNOW ONE Stop: 04/12/17 23:42 Last Admin: 04/12/17 23:44 Dose: 100 mcg Hyoscyamine Sulfate (Levsin, Hyomax-Sl) 0.25 mg PO ONCE ONE Stop: 04/13/17 00:15 Last Admin: 04/13/17 00:32 Dose: 0.25 mg Sodium Chloride (Ns) 1,000 mls @ 0 mls/hr IV ONCE ONE; Wide Open PRN Reason: Protocol Stop: 04/12/17 23:49 Last Admin: 04/12/17 23:53 Dose: 1,000 mls Lidocaine (Lidocaine 2% Viscous) 15 ml PO ONCE ONE Stop: 04/13/17 00:15 Last Admin: 04/13/17 00:33 Dose: 15 ml Departure - Departure Disposition: Home, Routine, Self-Care Clinical Impression: Gastritis Condition: Good Instructions: Gastritis (ED) Additional Instructions: Follow up with your cabin crew in 2-3 days for further evaluation. Return to the emergency department for uncontrolled nausea or vomiting, vomiting blood, dark black bowel movements, fevers, chills, or any other concerns. Referrals: JONELLE HOLLOWAY,MEDICINE [Other] - As per Instructions
[2017-04-12 23:41] LABS: % IMMATURE GRANULYOCYTES 0.3 % (0.0-1.1); ABSOLUTE IMMATURE GRANULOCYTES 0.03 10^3/uL (0.00-0.10); ADD DIFF? NO; ADD MORPH? NO; ADD SCAN? NO; ATYPICAL LYMPHOCYTE FLAG 0 (0-99); FRAGMENT RBC FLAG 0 (0-99); HEMATOCRIT 40.5 % (38.0-47.0); HEMOGLOBIN 13.5 g/dL (12.6-16.3); LEFT SHIFT FLG 0 (0-99); LIPEMIA HEMOLYSIS FLAG 80 (0-99); MEAN CELL HEMOGLOBIN 31.5 pg (27.9-34.1); MEAN CELL HEMOGLOBIN CONCENTR. 33.3 g/dL (32.4-36.7); MEAN CELL VOLUME 94.4 fL (81.5-99.8); MEAN PLATELET VOLUME 9.7 fL (8.7-11.7); PLATELET CLUMPS FLAG 0 (0-99); PLATELET COUNT 260 10^3/uL (150-400); RED BLOOD CELL COUNT 4.29 10^6/uL (4.18-5.33); RED CELL DISTRIBUTION WIDTH 13.2 % (11.5-15.2)
[2017-04-12] MEDS ORDERED: fentaNYL 100 MCG/2 ML INJ IVP ONE (23:41)
[2017-04-12] MEDS ORDERED: NS 1,000 ML IV ONE (23:48)
[2017-04-12 23:53] LABS: ALANINE AMINOTRANSFERASE 29 IU/L (9-52); ALBUMIN 4.2 g/dL (3.5-5.0); ALKALINE PHOSPHATASE 51 IU/L (38-126); ANION GAP 9 mEq/L (8-16); ASPARTATE AMINOTRANSFERASE 16 IU/L (14-46); BILIRUBIN,TOTAL 0.3 mg/dL (0.1-1.4); BILIRUBIN-CONJUGATED 0.2 mg/dL (0.0-0.5); BILIRUBIN-UNCONJUGATED 0.1 mg/dL (0.0-1.1); CALCIUM 9.6 mg/dL (8.5-10.4); CARBON DIOXIDE 27 mEq/l (22-31); CHLORIDE 98 mEq/L (97-110); CREATININE 0.7 mg/dL (0.6-1.0); GLOMERULAR FILTRATION RATE > 60; GLUCOSE 83 mg/dL (70-100); POTASSIUM 4.3 mEq/L (3.5-5.2); SODIUM 134 mEq/L (134-144); TOTAL PROTEIN 7.4 g/dL (6.3-8.2)
[2017-04-13] MEDS ORDERED: HYOSCYAMINE SULFATE 0.125 MG TAB PO ONE (00:14)
[2017-04-13] MEDS ORDERED: LIDOCAINE 2% VISCOUS 15 ML UDCUP PO ONE (00:14)
[2017-04-13] MEDS ORDERED: MAG HYDROX/AL HYDROX/SIMETH 30 ML UDCUP PO ONE (00:14)
[2017-04-13 01:16] VITALS: BP 95/56; PULSE 61; RESP 16; O2SAT 96
== END 2017-04-13 01:16 | disposition home or self-care (01) ==
DX: K29.70 Gastritis, unspecified, without bleeding (principal); F17.200 Nicotine dependence, unspecified, uncomplicated; E86.9 Volume depletion, unspecified
CPT/HCPCS: 96374; J3010

== ENCOUNTER 2017-05-30 07:27 | Emergency (ER) | payer BC ==
[2017-05-30 07:31] VITALS: RESP 16; TEMP 97.9
--- NOTE | 2017-05-30 07:42 | EDPHY ---
H & P Stated Complaint: "I think I have pancreatitis" Abd pain with n/v since last pm Time Seen by Provider: 05/30/17 07:42 - Personal History LMP (Females 10-55): 15-21 Days Ago Current Tetanus Diphtheria and Acellular Pertussis (TDAP): Yes - Medical/Surgical History Hx Asthma: No Hx Chronic Respiratory Disease: No Hx Diabetes: No Hx Cardiac Disease: No Hx Renal Disease: No Hx Cirrhosis: No Hx Alcoholism: No Hx HIV/AIDS: No Hx Splenectomy or Spleen Trauma: No Other PMH: Hx Pancreatitis-Apr 2014, depression, anxiety, Lyme disease. PSH: dental surgeries - Social History Smoking Status: Current every day smoker Constitutional: Initial Vital Signs Temperature (C) 36.6 C 05/30/17 07:28 Heart Rate 56 L 05/30/17 07:28 Respiratory Rate 16 05/30/17 07:28 Blood Pressure 129/80 H 05/30/17 07:28 O2 Sat (%) 98 05/30/17 07:28 O2 Delivery Mode Room Air Allergies/Adverse Reactions: penicillin G [Penicillin G] Allergy (Mild, Verified 05/30/17 07:28) Rash Sulfa (Sulfonamide Antibiotics) Allergy (Mild, Verified 05/30/17 07:28) itchy Home Medications: Medication Instructions Recorded Citalopram [CeleXA] 20 mg PO 04/12/17 Pantoprazole Sodium [Protonix] 20 mg PO DAILY #30 tablet. 05/30/17 Ranitidine HCl [Zantac 75] 150 mg PO DAILY #14 tablet 05/30/17 Medical Decision Making ED Course/Re-evaluation: CHIEF COMPLAINT: Abdominal pain HISTORY OF PRESENT ILLNESS: The patient is a 41 y/o with a history of pancreatitis complaining of left-sided abdominal pain, nausea, and vomiting. She recently had dental surgery for which she is taking steroids and antibiotics. Last night, she tried [place] food for the first time. Late last night, she developed nausea abdominal pain, and began vomiting. She has associated diaphoresis. She denies diarrhea or any other associated symptoms. She had a celiac stent placed in February. REVIEW OF SYSTEMS: A 10 point review of systems was performed and is negative with the exception of the elements mentioned in the history of present illness. PHYSICAL EXAM: HR, BP, O2 Sat, RR. Temp noted General Appearance: Alert, well hydrated, appropriate, and non-toxic appearing. Head: Atraumatic without scalp tenderness or obvious injury Eyes: Pupils equal, round, reactive to light and accommodation, EOMI, no trauma , no injection. Ears: Clear bilaterally, no perforation, normal landmarks Nose: Atraumatic, no rhinorrhea, clear. Throat: There is no erythema or exudates, no lesions, normal tonsils, mucus membranes moist. Neck: Supple, 2+ carotid upstroke, nontender, no lymphadenopathy. Respiratory: No retractions, no distress, no wheezes, and no accessory muscle use. Lungs are clear to auscultation bilaterally. Cardiovascular: Regular rate and rhythm, no murmurs, rubs, or gallops. Good capillary refill all extremities. Gastrointestinal: Epigastric tenderness. Abdomen is soft, non-distended, no masses, no rebound, no guarding, no peritoneal signs. Musculoskeletal: Normal active ROM of all extremities, atraumatic. Neurological: Alert, appropriate, and interactive. The patient has normal DTRs and non-focal cranial nerves, motor, sensory, and cerebellar exam. Skin: No rashes, good turgor, no nodules on palpation. Past medical history: Pancreatitis Past surgical history: Celiac stent Family history: Non-contributory Social history: , lives in [place], employed DIAGNOSTICS/PROCEDURES/CRITICAL CARE TIME: DIFFERENTIAL DIAGNOSIS: The differential diagnosis for the patient's abdominal pain included but was not limited to ovarian cyst, pelvic inflammatory disease, ovarian torsion, urinary tract infection, ectopic , cholecystitis, and appendicitis. MEDICAL DECISION MAKING: The patient is a 41 y/o female with a history of pancreatitis complaining of left-sided abdominal pain, nausea, and vomiting onset last night. She recently had dental surgery and was started on multiple antibiotics and steroids. She also tried new food last night. She has associated diaphoresis. On exam, she had epigastric pain. She denies diarrhea or other associated symptoms. Her lipase and labs are normal. She likely has gastritis from the antibiotics and steroids. I have started her on a proton pump inhibitor and an H2 carmen and instructed her to follow up with her drag car racer. Return precautions given. I am concerned about malingering for the purpose of acquiring narcotics. I have given her a GI cocktail to help her symptoms. - Data Points Laboratory Results: Laboratory Results 05/30/17 07:40 05/30/17 07:40 05/30/17 05/30/17 05/30/17 07:40 07:40 07:40 WBC 10.25 10^3/uL H 10^3/uL (3.80-9.50) RBC 4.17 10^6/uL L 10^6/uL (4.18-5.33) Hgb 13.6 g/dL g/dL (12.6-16.3) Hct 39.6 % % (38.0-47.0) MCV 95.0 fL fL (81.5-99.8) MCH 32.6 pg pg (27.9-34.1) MCHC 34.3 g/dL g/dL (32.4-36.7) RDW 12.8 % % (11.5-15.2) Plt Count 224 10^3/uL 10^3/uL (150-400) MPV 9.5 fL fL (8.7-11.7) Neut % (Auto) 82.4 % H % (39.3-74.2) Lymph % (Auto) 12.6 % L % (15.0-45.0) [place] % (Auto) 3.9 % L % (4.5-13.0) Eos % (Auto) 0.1 % L % (0.6-7.6) Baso % (Auto) 0.5 % % (0.3-1.7) Nucleat RBC Rel Count 0.0 % % (0.0-0.2) Absolute Neuts (auto) 8.45 10^3/uL H 10^3/uL (1.70-6.50) Absolute Lymphs (auto) 1.29 10^3/uL 10^3/uL (1.00-3.00) Absolute Monos (auto) 0.40 10^3/uL 10^3/uL (0.30-0.80) Absolute Eos (auto) 0.01 10^3/uL L 10^3/uL (0.03-0.40) Absolute Basos (auto) 0.05 10^3/uL 10^3/uL (0.02-0.10) Absolute Nucleated RBC 0.00 10^3/uL 10^3/uL (0-0.01) Immature Gran % 0.5 % % (0.0-1.1) Immature Gran # 0.05 10^3/uL 10^3/uL (0.00-0.10) Sodium 138 mEq/L mEq/L (134-144) Potassium 4.2 mEq/L mEq/L (3.5-5.2) Chloride 104 mEq/L mEq/L (97-110) Carbon Dioxide 22 mEq/l mEq/l (22-31) Anion Gap 12 mEq/L mEq/L (8-16) BUN 11 mg/dL mg/dL (7-23) Creatinine 0.6 mg/dL mg/dL (0.6-1.0) Estimated GFR > 60 Glucose 123 mg/dL H mg/dL (70-100) Calcium 9.3 mg/dL mg/dL (8.5-10.4) Total Bilirubin 0.2 mg/dL mg/dL (0.1-1.4) Conjugated Bilirubin 0.0 mg/dL mg/dL (0.0-0.5) Unconjugated Bilirubin 0.2 mg/dL mg/dL (0.0-1.1) AST 26 IU/L IU/L (14-46) ALT 38 IU/L IU/L (9-52) Alkaline Phosphatase 56 IU/L IU/L (38-126) Total Protein 7.1 g/dL g/dL (6.3-8.2) Albumin 4.5 g/dL g/dL (3.5-5.0) Lipase 49 IU/L IU/L (23-300) Beta HCG, Qual NEGATIVE Medications Given: Discontinued Medications Hydromorphone HCl (Dilaudid) 1 mg IVP EDNOW ONE Stop: 05/30/17 07:46 Last Admin: 05/30/17 07:55 Dose: 1 mg Sodium Chloride (Ns) 1,000 mls @ 0 mls/hr IV EDNOW ONE; Wide Open PRN Reason: Protocol Stop: 05/30/17 07:46 Last Admin: 05/30/17 07:55 Dose: 1,000 mls Sodium Chloride (Ns) 1,000 mls @ 0 mls/hr IV EDNOW ONE; Wide Open PRN Reason: Protocol Stop: 05/30/17 07:46 Last Admin: 05/30/17 07:55 Dose: 1,000 mls Ketorolac Tromethamine (Toradol) 30 mg IVP EDNOW ONE Stop: 05/30/17 07:46 Last Admin: 05/30/17 07:54 Dose: 30 mg Ondansetron HCl (Zofran) 4 mg IVP EDNOW ONE Stop: 05/30/17 07:46 Last Admin: 05/30/17 07:54 Dose: 4 mg Departure - Departure Disposition: Home, Routine, Self-Care Clinical Impression: Gastritis Qualifiers: Gastritis type: superficial Chronicity: acute Gastritis bleeding: without bleeding Qualified Code(s): K29.00 - Acute gastritis without bleeding Condition: Good Instructions: Gastritis (ED) Additional Instructions: 1. Start taking Pepcid and proton pump inhibitor as directed. 2. Follow up with your drag car racer for unimproved symptoms in 2-3 days. 3. Return to the ED for worsening of condition. Referrals: RACHEL LEIJA [Primary Care Provider] - As per Instructions Prescriptions: Pantoprazole Sodium [Protonix] 20 mg PO DAILY #30 tablet. Ranitidine HCl [Zantac 75] 150 mg PO DAILY #14 tablet
[2017-05-30] MEDS ORDERED: HYDROmorphONE/DILAUDID 1 MG/ML INJ IVP ONE (07:45)
[2017-05-30] MEDS ORDERED: KETOROLAC 30 MG/1 ML SDV IVP ONE (07:45)
[2017-05-30] MEDS ORDERED: ONDANSETRON 4 MG/2 ML VIAL IVP ONE (07:45)
[2017-05-30] MEDS ORDERED: NS 1,000 ML IV ONE ×2 (07:45)
[2017-05-30 07:52] LABS: % IMMATURE GRANULYOCYTES 0.5 % (0.0-1.1); ABSOLUTE IMMATURE GRANULOCYTES 0.05 10^3/uL (0.00-0.10); ADD DIFF? NO; ADD MORPH? NO; ADD SCAN? NO; ATYPICAL LYMPHOCYTE FLAG 0 (0-99); FRAGMENT RBC FLAG 0 (0-99); HEMATOCRIT 39.6 % (38.0-47.0); HEMOGLOBIN 13.6 g/dL (12.6-16.3); LEFT SHIFT FLG 0 (0-99); LIPEMIA HEMOLYSIS FLAG 90 (0-99); MEAN CELL HEMOGLOBIN 32.6 pg (27.9-34.1); MEAN CELL HEMOGLOBIN CONCENTR. 34.3 g/dL (32.4-36.7); MEAN PLATELET VOLUME 9.5 fL (8.7-11.7); PLATELET CLUMPS FLAG 10 (0-99); PLATELET COUNT 224 10^3/uL (150-400); RED BLOOD CELL COUNT 4.17 10^6/uL (4.18-5.33); RED CELL DISTRIBUTION WIDTH 12.8 % (11.5-15.2)
[2017-05-30 08:03] LABS: ALANINE AMINOTRANSFERASE 38 IU/L (9-52); ALBUMIN 4.5 g/dL (3.5-5.0); ALKALINE PHOSPHATASE 56 IU/L (38-126); ANION GAP 12 mEq/L (8-16); ASPARTATE AMINOTRANSFERASE 26 IU/L (14-46); BILIRUBIN,TOTAL 0.2 mg/dL (0.1-1.4); BILIRUBIN-UNCONJUGATED 0.2 mg/dL (0.0-1.1); CALCIUM 9.3 mg/dL (8.5-10.4); CARBON DIOXIDE 22 mEq/l (22-31); CHLORIDE 104 mEq/L (97-110); CREATININE 0.6 mg/dL (0.6-1.0); GLOMERULAR FILTRATION RATE > 60; GLUCOSE 123 mg/dL (70-100); POTASSIUM 4.2 mEq/L (3.5-5.2); SODIUM 138 mEq/L (134-144); TOTAL PROTEIN 7.1 g/dL (6.3-8.2)
[2017-05-30] MEDS ORDERED: HYOSCYAMINE SULFATE 0.125 MG TAB PO ONE (08:28)
[2017-05-30] MEDS ORDERED: MAG HYDROX/AL HYDROX/SIMETH 30 ML UDCUP PO ONE (08:28)
[2017-05-30] MEDS ORDERED: LIDOCAINE 2% VISCOUS 15 ML UDCUP PO ONE (08:28)
[2017-05-30 08:45] VITALS: BP 143/80; PULSE 55; O2SAT 96
== END 2017-05-30 08:46 | disposition home or self-care (01) ==
PROC: 3E0337Z Introduction of Electrolytic and Water Balance Substance into Peripheral Vein, Percutaneous Approach (ICD-10-PCS; principal; 2017-05-30)
DX: K29.00 Acute gastritis without bleeding (principal); F17.200 Nicotine dependence, unspecified, uncomplicated; E86.9 Volume depletion, unspecified
CPT/HCPCS: 96374; J1170; J1885; J2405

== ENCOUNTER 2017-06-03 05:38 | Emergency (ER) | payer BC ==
[2017-06-03] MEDS ORDERED: KETOROLAC 15 MG/1 ML SDV IVP ONE (06:20)
--- NOTE | 2017-06-03 06:24 | EDPHY ---
H & P Stated Complaint: abd pain; Dx'd w/gastroenteritis Wednesday, hasn't been able to fu - Personal History LMP (Females 10-55): 15-21 Days Ago Current Tetanus/Diphtheria Vaccine: Yes - Medical/Surgical History Hx Asthma: No Hx Chronic Respiratory Disease: No Hx Diabetes: No Hx Cardiac Disease: No Hx Renal Disease: No Hx Cirrhosis: No Hx Alcoholism: No Hx HIV/AIDS: No Hx Splenectomy or Spleen Trauma: No Other PMH: PMHx: Pancreatitis-Apr 2014, depression, anxiety, Lyme disease. PSH: dental surgeries - Social History Smoking Status: Current every day smoker Time Seen by Provider: 06/03/17 06:08 HPI/ROS: Chief Complaint: Abdominal pain HPI: 41-year-old woman has a past history of chronic pancreatitis presenting with left-sided upper abdominal pain worsening for the past couple of weeks. She was seen here 4 days ago and had normal laboratory evaluations and diagnosed with likely gastritis. Patient states she has been taking the proton pump an H2 carmen as prescribed a these have not been providing any help. It is noteworthy that she had a celiac nerve block done by Gastroenterology at [facility] on the 16 of February. She discussed her symptoms with her event representative in he believes that primary would be right for that block to now be wearing off. She has had some nausea vomiting 2 days ago but none yesterday or today. No fevers or chills. No cough. No shortness of breath. Patient does states worse when she tries to get up and chills feels pulling in the left side of her chest and ribs. No diarrhea or constipation. Pain is entirely on the left side. ROS: 10 point Review of Systems is negative except as noted in the HPI. PMH: Pancreatitis status post celiac nerve block Social History: No smoking Family History: non-contributory Physical Exam: Gen: Awake, Alert, uncomfortable appearing HEENT: Nose: no rhinorrhea Eyes: PERRLA, EOMI Mouth: Moist mucosa Neck: Supple, no JVD Chest: She has tenderness along the anterior lateral left ribs 9 in head and some of 11 reproducing her presenting complaint, there are no deformities or step-offs, lungs clear to auscultation Heart: S1, S2 normal, no murmur Abd: Soft, mild to moderate epigastric and left upper quadrant tenderness, not as tender as her left lateral ribs. No guarding, no right upper quadrant tenderness, no Dominguez sign, no guarding Back: no CVA tenderness, no midline tenderness Ext: no edema, non-tender Skin: no rash Neuro: CN II-XII intact, Sensation grossly intact, Strength 5/5 in bilateral upper and lower extremities ([place] Pradhan) Constitutional: Initial Vital Signs Temperature (C) 36.7 C 06/03/17 05:47 Heart Rate 49 L 06/03/17 05:47 Respiratory Rate 14 06/03/17 05:47 Blood Pressure 104/71 06/03/17 05:47 O2 Sat (%) 98 06/03/17 05:47 O2 Delivery Mode Room Air Allergies/Adverse Reactions: penicillin G [Penicillin G] Allergy (Mild, Verified 05/30/17 07:28) Rash Sulfa (Sulfonamide Antibiotics) Allergy (Mild, Verified 05/30/17 07:28) itchy Home Medications: Medication Instructions Recorded Citalopram [CeleXA] 20 mg PO 04/12/17 traZODone 06/03/17 Medical Decision Making ED Course/Re-evaluation: 41-year-old with left chest wall and epigastric pain. I have ordered a chest x- ray and repeat laboratory evaluations. I have also ordered Toradol as I think this is primarily a musculoskeletal component to her pain. [id number] patient signed out to Dr. Cruz pending diagnostic testing results and analgesia. (New Pradhan) This patient was turned over to me at shift change. I am familiar with this patient as I took care of her a couple days ago. She has some sort of chronic abdominal pain which responds well to celiac nerve block. She gets that at the [facility]. She spoke to Dr. Tamez's nurse this past week according to the patient. The nurse thought that she may need another celiac nerve block as her last 1 was several months ago and it might have worn off. This patient is here in the emergency department with no remarkable laboratory findings and a normal PA and lateral chest x-ray. I think her pain is chronic. I am very concerned about her drug seeking. She continues to request narcotic analgesics over and over. I will discharge her with a few Oxy IR because there is no reason to admit her and I cannot get her transferred to [facility] for an elective procedure on . Consequently, she will follow up with her doctor on Wednesday she states specifically she has an appointment. ( Elan Cruz) - Data Points Laboratory Results: Laboratory Results 06/03/17 06:25 06/03/17 06:25 06/03/17 06/03/17 06:25 06:25 WBC 10.76 10^3/uL H 10^3/uL (3.80-9.50) RBC 4.09 10^6/uL L 10^6/uL (4.18-5.33) Hgb 13.5 g/dL g/dL (12.6-16.3) Hct 38.6 % % (38.0-47.0) MCV 94.4 fL fL (81.5-99.8) MCH 33.0 pg pg (27.9-34.1) MCHC 35.0 g/dL g/dL (32.4-36.7) RDW 12.6 % % (11.5-15.2) Plt Count 207 10^3/uL 10^3/uL (150-400) MPV 9.2 fL fL (8.7-11.7) Neut % (Auto) 65.6 % % (39.3-74.2) Lymph % (Auto) 26.4 % % (15.0-45.0) [place] % (Auto) 5.4 % % (4.5-13.0) Eos % (Auto) 1.5 % % (0.6-7.6) Baso % (Auto) 0.7 % % (0.3-1.7) Nucleat RBC Rel Count 0.0 % % (0.0-0.2) Absolute Neuts (auto) 7.06 10^3/uL H 10^3/uL (1.70-6.50) Absolute Lymphs (auto) 2.84 10^3/uL 10^3/uL (1.00-3.00) Absolute Monos (auto) 0.58 10^3/uL 10^3/uL (0.30-0.80) Absolute Eos (auto) 0.16 10^3/uL 10^3/uL (0.03-0.40) Absolute Basos (auto) 0.08 10^3/uL 10^3/uL (0.02-0.10) Absolute Nucleated RBC 0.00 10^3/uL 10^3/uL (0-0.01) Immature Gran % 0.4 % % (0.0-1.1) Immature Gran # 0.04 10^3/uL 10^3/uL (0.00-0.10) Sodium 138 mEq/L mEq/L (134-144) Potassium 4.3 mEq/L mEq/L (3.5-5.2) Chloride 103 mEq/L mEq/L (97-110) Carbon Dioxide 24 mEq/l mEq/l (22-31) Anion Gap 11 mEq/L mEq/L (8-16) BUN 8 mg/dL mg/dL (7-23) Creatinine 0.7 mg/dL mg/dL (0.6-1.0) Estimated GFR > 60 Glucose 95 mg/dL mg/dL (70-100) Calcium 8.9 mg/dL mg/dL (8.5-10.4) Total Bilirubin 0.4 mg/dL mg/dL (0.1-1.4) AST 16 IU/L IU/L (14-46) ALT 30 IU/L IU/L (9-52) Alkaline Phosphatase 49 IU/L IU/L (38-126) Total Protein 6.6 g/dL g/dL (6.3-8.2) Albumin 4.1 g/dL g/dL (3.5-5.0) Lipase 144 IU/L IU/L (23-300) Medications Given: Discontinued Medications Ketorolac Tromethamine (Toradol) 15 mg IVP EDNOW ONE Stop: 06/03/17 06:21 Last Admin: 06/03/17 06:29 Dose: 15 mg Departure - Departure Disposition: Home, Routine, Self-Care Clinical Impression: Abdominal pain, chronic, left upper quadrant Condition: Good Instructions: Chronic Abdominal Pain (ED) Additional Instructions: Follow up with your event representative at [facility] this soon as possible. Follow up with your primary doctor on Wednesday Referrals: RACHEL LEIJA [Primary Care Provider] - As per Instructions
[2017-06-03 06:31] LABS: % IMMATURE GRANULYOCYTES 0.4 % (0.0-1.1); ABSOLUTE IMMATURE GRANULOCYTES 0.04 10^3/uL (0.00-0.10); ADD DIFF? NO; ADD MORPH? NO; ADD SCAN? NO; ATYPICAL LYMPHOCYTE FLAG 0 (0-99); FRAGMENT RBC FLAG 0 (0-99); HEMATOCRIT 38.6 % (38.0-47.0); HEMOGLOBIN 13.5 g/dL (12.6-16.3); LEFT SHIFT FLG 0 (0-99); LIPEMIA HEMOLYSIS FLAG 90 (0-99); MEAN CELL VOLUME 94.4 fL (81.5-99.8); MEAN PLATELET VOLUME 9.2 fL (8.7-11.7); PLATELET CLUMPS FLAG 0 (0-99); PLATELET COUNT 207 10^3/uL (150-400); RED BLOOD CELL COUNT 4.09 10^6/uL (4.18-5.33); RED CELL DISTRIBUTION WIDTH 12.6 % (11.5-15.2)
[2017-06-03 06:50] LABS: ALANINE AMINOTRANSFERASE 30 IU/L (9-52); ALBUMIN 4.1 g/dL (3.5-5.0); ALKALINE PHOSPHATASE 49 IU/L (38-126); ANION GAP 11 mEq/L (8-16); ASPARTATE AMINOTRANSFERASE 16 IU/L (14-46); BILIRUBIN,TOTAL 0.4 mg/dL (0.1-1.4); CALCIUM 8.9 mg/dL (8.5-10.4); CARBON DIOXIDE 24 mEq/l (22-31); CHLORIDE 103 mEq/L (97-110); CREATININE 0.7 mg/dL (0.6-1.0); GLOMERULAR FILTRATION RATE > 60; GLUCOSE 95 mg/dL (70-100); POTASSIUM 4.3 mEq/L (3.5-5.2); SODIUM 138 mEq/L (134-144); TOTAL PROTEIN 6.6 g/dL (6.3-8.2)
[2017-06-03] MEDS ORDERED: OXYCODONE/APAP 5/325MG PREPACK#4 BTL TAKEHOME ONE ×2 (07:29→07:30)
[2017-06-03] MEDS ORDERED: OXYCODONE/APAP 5/325 TAB PO ONE (07:32)
[2017-06-03 07:43] VITALS: BP 99/57; PULSE 48; RESP 16; TEMP 98.2; O2SAT 97
== END 2017-06-03 07:44 | disposition home or self-care (01) ==
DX: R10.12 Left upper quadrant pain (principal); G89.29 Other chronic pain; F17.200 Nicotine dependence, unspecified, uncomplicated
CPT/HCPCS: 96374; J1885

== ENCOUNTER 2018-03-23 14:42 | Emergency (ER) | payer BC, OTHER ==
[2018-03-23 14:49] VITALS: BP 126/79
[2018-03-23] MEDS ORDERED: HALOPERIDOL LACT 5 MG/ML INJ IVP ONE (15:09)
[2018-03-23] MEDS ORDERED: NS 1,000 ML IV ONE (15:09)
--- NOTE | 2018-03-23 15:18 | EDPHY ---
H & P Stated Complaint: abdominal pain, hx pancreatitis Time Seen by Provider: 03/23/18 14:57 HPI/ROS: CHIEF COMPLAINT: Left upper quadrant pain HISTORY OF PRESENT ILLNESS: The patient is a 42-year-old female with a history of chronic abdominal pain and pancreatitis who has had extensive workups all of which have been negative in the past according to the patient. Last year she had some relief from a celiac nerve block by her gastrologist at [place]. Her symptoms returned however and in June of last year she got off of all pain medications and since then she states that she has had a really good year with hardly any chronic pain symptoms until this last week when she got off of her typical diet and re-introduced alcohol. She has tried several over-the- counter medications already without significant improvement. She has also taken Pepto-Bismol, hyoscyamine, Mylanta and Advil without significant relief. Her pain does radiate to her left upper back which she states is typical for her no heartburn, no blood in her vomit. No diarrhea. Severity: Moderate Modifying factors: Alcohol REVIEW OF SYSTEMS: Constitutional: denies: chills, fever, recent illness, recent injury EENTM: denies: blurred vision, double vision, nose congestion Respiratory: denies: cough, shortness of breath Cardiac: denies: chest pain, irregular heart rate, lightheadedness, palpitations Gastrointestinal/Abdominal: See HPI Genitourinary: denies: dysuria, frequency, hematuria, pain Musculoskeletal: denies: joint pain, muscle pain Skin: denies: lesions, rash, jaundice, bruising Neurological: denies: headache, numbness, paresthesia, tingling, dizziness, weakness Hematologic/Lymphatic: denies: blood clots, easy bleeding, easy bruising Immunologic/allergic: denies: HIV/AIDS, transplant 10 systems reviewed and negative except as noted EXAM: GENERAL: Well-appearing, well-nourished and in no acute distress. HEAD: Atraumatic, normocephalic. EYES: Pupils equal round and reactive to light, extraocular movements intact, sclera anicteric, conjunctiva are normal. ENT: TMs normal, nares patent, oropharynx clear without exudates. Moist mucous membranes. NECK: Normal range of motion, supple without lymphadenopathy or JVD. LUNGS: Breath sounds clear to auscultation bilaterally and equal. No wheezes rales or rhonchi. HEART: Regular rate and rhythm without murmurs, rubs or gallops. ABDOMEN: Soft, nontender, normoactive bowel sounds. Slightly bloated, No guarding, no rebound. No masses appreciated. BACK: No CVA tenderness, no spinal tenderness, step-offs or deformities EXTREMITIES: Normal range of motion, no pitting or edema. No clubbing or cyanosis. NEUROLOGICAL: Cranial nerves II through XII grossly intact. Normal speech, normal gait. 5/5 strength, normal movement in all extremities, normal sensation , normal reflexes PSYCH: Normal mood, normal affect. SKIN: Warm, dry, normal turgor, no visible rashes or lesions. Source: Patient Exam Limitations: No limitations - Personal History LMP (Females 10-55): 1-7 Days Ago - Medical/Surgical History Hx Asthma: No Hx Chronic Respiratory Disease: No Hx Diabetes: No Hx Cardiac Disease: No Hx Renal Disease: No Hx Cirrhosis: No Hx Alcoholism: No Hx HIV/AIDS: No Hx Splenectomy or Spleen Trauma: No Other PMH: PMHx: Pancreatitis-Apr 2014, depression, anxiety, Lyme disease. PSH: dental surgeries - Family History Significant Family History: No pertinent family hx - Social History Smoking Status: Current every day smoker Alcohol Use: Sober Drug Use: None Constitutional: Initial Vital Signs Temperature (C) 36.8 C 03/23/18 14:46 Heart Rate 91 03/23/18 14:46 Respiratory Rate 18 03/23/18 14:46 Blood Pressure 126/79 H 03/23/18 14:46 O2 Sat (%) 93 03/23/18 14:46 O2 Delivery Mode Room Air Allergies/Adverse Reactions: penicillin G [Penicillin G] Allergy (Mild, Verified 03/23/18 14:44) Rash Sulfa (Sulfonamide Antibiotics) Allergy (Mild, Verified 03/23/18 14:44) itchy Home Medications: Medication Instructions Recorded Citalopram 03/23/18 Contrave ER 8-90 mg Tablet 03/23/18 Flexeril 10 MG (*) 03/23/18 Haloperidol [Haldol 5 MG (*)] 5 mg PO BID PRN #10 tab 03/23/18 Hyoscyamine Sulfate 03/23/18 hydrOXYzine HCL 03/23/18 Medical Decision Making ED Course/Re-evaluation: 4:30 p.m. The patient states that she feels completely better. She is very happy with Haldol and was asking for the name that medication. She is now providing a urinalysis. If this is negative we will discharge. She is happy with this plan. Differential Diagnosis: Partial list of the Differential diagnosis considered include but were not limited to; chronic abdominal pain, pancreatitis, gastritis, peptic ulcer disease, alcohol abuse, cyclic vomiting, cannabis abuse and although unlikely based on the history and physical exam, I also considered obstruction, ischemia , appendicitis, biliary disease. I discussed these differential diagnoses and the plan with the patient as well as the usual and expected course. The patient understands that the diagnosis is provisional and that in medicine we are not always correct and that further workup is often warranted. Usual and customary warnings were given. All of the patient's questions were answered. The patient was instructed to return to the emergency department should the symptoms at all worsen or return, otherwise to followup with the physician as we discussed. - Data Points Laboratory Results: Laboratory Results 03/23/18 15:05 03/23/18 15:49 03/23/18 03/23/18 03/23/18 16:30 15:49 15:49 WBC RBC Hgb Hct MCV MCH MCHC RDW Plt Count MPV Neut % (Auto) Lymph % (Auto) [place] % (Auto) Eos % (Auto) Baso % (Auto) Nucleat RBC Rel Count Absolute Neuts (auto) Absolute Lymphs (auto) Absolute Monos (auto) Absolute Eos (auto) Absolute Basos (auto) Absolute Nucleated RBC Immature Gran % Immature Gran # Sodium 138 mEq/L mEq/L (135-145) Potassium 3.6 mEq/L mEq/L (3.3-5.0) Chloride 105 mEq/L mEq/L (97-110) Carbon Dioxide 24 mEq/l mEq/l (22-31) Anion Gap 9 mEq/L mEq/L (8-16) BUN 10 mg/dL mg/dL (7-23) Creatinine 0.6 mg/dL mg/dL (0.6-1.0) Estimated GFR > 60 Glucose 73 mg/dL mg/dL (70-100) Calcium 8.3 mg/dL L mg/dL (8.5-10.4) Total Bilirubin 0.4 mg/dL mg/dL (0.1-1.4) Conjugated Bilirubin 0.1 mg/dL mg/dL (0.0-0.5) Unconjugated Bilirubin 0.3 mg/dL mg/dL (0.0-1.1) AST 16 IU/L IU/L (14-46) ALT 28 IU/L IU/L (9-52) Alkaline Phosphatase 55 IU/L IU/L (38-126) Total Protein 6.1 g/dL L g/dL (6.3-8.2) Albumin 3.5 g/dL g/dL (3.5-5.0) Lipase 41 IU/L IU/L (23-300) Beta HCG, Qual NEGATIVE Urine Color YELLOW Urine Appearance CLEAR Urine pH 6.0 (5.0-7.5) Ur Specific [place] 1.008 (1.002-1.030) Urine Protein NEGATIVE (NEGATIVE) Urine Ketones NEGATIVE (NEGATIVE) Urine Blood NEGATIVE (NEGATIVE) Urine Nitrate NEGATIVE (NEGATIVE) Urine Bilirubin NEGATIVE (NEGATIVE) Urine Urobilinogen NEGATIVE EU EU (0.2-1.0) Ur Leukocyte Esterase NEGATIVE (NEGATIVE) Urine RBC NONE SEEN /hpf /hpf (0-3) Urine WBC 1-3 /hpf /hpf (0-3) Ur Epithelial Cells TRACE /lpf /lpf (NONE-1+) Urine Bacteria TRACE /hpf H /hpf (NONE SEEN) Urine Mucus TRACE /lpf /lpf (NONE-1+) Urine Glucose NEGATIVE (NEGATIVE) 03/23/18 15:05 WBC 7.57 10^3/uL 10^3/uL (3.80-9.50) RBC 4.36 10^6/uL 10^6/uL (4.18-5.33) Hgb 12.9 g/dL g/dL (12.6-16.3) Hct 38.2 % % (38.0-47.0) MCV 87.6 fL fL (81.5-99.8) MCH 29.6 pg pg (27.9-34.1) MCHC 33.8 g/dL g/dL (32.4-36.7) RDW 12.9 % % (11.5-15.2) Plt Count 293 10^3/uL 10^3/uL (150-400) MPV 9.2 fL fL (8.7-11.7) Neut % (Auto) 61.3 % % (39.3-74.2) Lymph % (Auto) 28.8 % % (15.0-45.0) [place] % (Auto) 5.0 % % (4.5-13.0) Eos % (Auto) 3.4 % % (0.6-7.6) Baso % (Auto) 1.2 % % (0.3-1.7) Nucleat RBC Rel Count 0.0 % % (0.0-0.2) Absolute Neuts (auto) 4.64 10^3/uL 10^3/uL (1.70-6.50) Absolute Lymphs (auto) 2.18 10^3/uL 10^3/uL (1.00-3.00) Absolute Monos (auto) 0.38 10^3/uL 10^3/uL (0.30-0.80) Absolute Eos (auto) 0.26 10^3/uL 10^3/uL (0.03-0.40) Absolute Basos (auto) 0.09 10^3/uL 10^3/uL (0.02-0.10) Absolute Nucleated RBC 0.00 10^3/uL 10^3/uL (0-0.01) Immature Gran % 0.3 % % (0.0-1.1) Immature Gran # 0.02 10^3/uL 10^3/uL (0.00-0.10) Sodium Potassium Chloride Carbon Dioxide Anion Gap BUN Creatinine Estimated GFR Glucose Calcium Total Bilirubin Conjugated Bilirubin Unconjugated Bilirubin AST ALT Alkaline Phosphatase Total Protein Albumin Lipase Beta HCG, Qual Urine Color Urine Appearance Urine pH Ur Specific Amelia Urine Protein Urine Ketones Urine Blood Urine Nitrate Urine Bilirubin Urine Urobilinogen Ur Leukocyte Esterase Urine RBC Urine WBC Ur Epithelial Cells Urine Bacteria Urine Mucus Urine Glucose Medications Given: Discontinued Medications Diphenhydramine HCl (Benadryl Injection) 25 mg IVP EDNOW ONE Stop: 03/23/18 15:12 Last Admin: 03/23/18 15:24 Dose: 25 mg Haloperidol Lactate (Haldol Injection) 5 mg IVP EDNOW ONE Stop: 03/23/18 15:10 Last Admin: 03/23/18 15:24 Dose: 5 mg Sodium Chloride (Ns) 1,000 mls @ 0 mls/hr IV EDNOW ONE; Wide Open PRN Reason: Protocol Stop: 03/23/18 15:10 Last Admin: 03/23/18 15:23 Dose: 1,000 mls Pantoprazole Sodium (Protonix) 40 mg IVP Q6H [facility] Stop: 09/19/18 21:08 Last Admin: 03/23/18 15:25 Dose: 40 mg Departure - Departure Disposition: Home, Routine, Self-Care Clinical Impression: Abdominal pain Qualifiers: Abdominal location: left upper quadrant Qualified Code(s): R10.12 - Left upper quadrant pain Condition: Fair Instructions: Haloperidol (By injection), Acute Abdominal Pain (ED) Referrals: RACHEL LEIJA [Primary Care Provider] - As per Instructions Prescriptions: Haloperidol [Haldol 5 MG (*)] 5 mg PO BID PRN #10 tab PRN Reason: Nausea/Vomiting, Use 2nd
[2018-03-23] MEDS ORDERED: PANTOPRAZOLE SODIUM 40 MG VIAL ONE (15:22)
[2018-03-23 15:27] LABS: PLATELET COUNT 293 10^3/uL (150-400)
[2018-03-23] MEDS ORDERED: PANTOPRAZOLE SODIUM 40 MG VIAL IVP SCH (21:09)
== END 2018-03-23 17:15 | disposition home or self-care (01) ==
DX: R10.12 Left upper quadrant pain (principal); E86.9 Volume depletion, unspecified; Z87.19 Personal history of other diseases of the digestive system; Z86.19 Personal history of other infectious and parasitic diseases; F17.200 Nicotine dependence, unspecified, uncomplicated
CPT/HCPCS: 96374; J1200; J1630

== ENCOUNTER 2018-04-11 21:18 | Emergency (ER) | payer OTHER ==
[2018-04-11] MEDS ORDERED: traZODone 50 MG TAB ONE (22:06)
[2018-04-11] MEDS ORDERED: LORazepam 1 MG TAB ONE (22:06)
--- NOTE | 2018-04-11 22:06 | EDPHY ---
H & P Stated Complaint: anxiety, depression, SI after med 3w ago - Personal History LMP (Females 10-55): Now Current Tetanus/Diphtheria Vaccine: Yes - Medical/Surgical History Hx Asthma: No Hx Chronic Respiratory Disease: No Hx Diabetes: No Hx Cardiac Disease: No Hx Renal Disease: No Hx Cirrhosis: No Hx Alcoholism: No Hx HIV/AIDS: No Hx Splenectomy or Spleen Trauma: No Other PMH: PMHx: Pancreatitis-Apr 2014, depression, anxiety, Lyme disease. PSH: dental surgeries - Social History Smoking Status: Current some day smoker Time Seen by Provider: 04/11/18 21:33 HPI/ROS: CHIEF COMPLAINT: "I'm feeling really sad" HISTORY OF PRESENT ILLNESS: 42-year-old female history of depression took an Uber to the ER for complaints of increasing depression, increasing thoughts of suicide without plan, positive suicidal ideation. Denies alcohol or drug use. REVIEW OF SYSTEMS: 10 systems reviewed and negative with the exception of the elements mentioned in the history of present illness PAST MEDICAL & SURGICAL HISTORY: Depression SOCIAL HISTORY:Nonsmoker. [ PHYSICAL EXAM (Prior to examination, patient consented to physical exam, hands were washed and my usual and customary physical exam procedures followed) 1) GENERAL: Well-developed, well-nourished, alert and oriented. Appears to be in no acute distress. 2) HEAD: Normocephalic, atraumatic 3) HEENT: Pupils equal, round, reactive to light bilaterally. Sclera anicteric. Nasopharynx, oropharynx, clear, no lesions. MoistDry mucous membranes. Ears bilaterally with normal tympanic membranes. 4) NECK: Full range of motion, no meningeal signs. 5) LUNGS: Clear auscultation bilaterally, no wheezes, no rhonchi, no retractions. 6) HEART: Regular rate and rhythm, no murmur, no heave, no gallop. 7) ABDOMEN: No guarding, no rebound, no focal tenderness, negative McBurney's, negative Dominguez's, negative Rovsing's, negative peritoneal sign, 8) MUSCULOSKELETAL: Moving all extremities, no focal areas of tenderness, no obvious trauma. No peripheral edema or discoloration. 9) BACK: No CVA tenderness, no midline vertebral tenderness, no fluctuance, no step-off, no obvious trauma, no visual or palpable abnormality. 10) SKIN: No rash, no petechiae. 11) Psychiatric: Patient is oriented X 3, depressed, flat affect, crying. DIFFERENTIAL DIAGNOSIS: In no particular order including but not limited to depression, suicidal ideation, homicidal ideation (Mahesh Boss) Constitutional: Initial Vital Signs Temperature (C) 36.4 C 04/11/18 21:21 Heart Rate 94 04/11/18 21:21 Respiratory Rate 20 04/11/18 21:21 Blood Pressure 129/80 H 04/11/18 21:21 O2 Sat (%) 97 04/11/18 21:21 O2 Delivery Mode Room Air Allergies/Adverse Reactions: penicillin G [Penicillin G] Allergy (Mild, Verified 03/23/18 14:44) Rash Sulfa (Sulfonamide Antibiotics) Allergy (Mild, Verified 03/23/18 14:44) itchy Home Medications: Medication Instructions Recorded Contrave ER 8-90 mg Tablet 03/23/18 Flexeril 10 MG (*) 03/23/18 traZODone 04/11/18 Medical Decision Making ED Course/Re-evaluation: 10:03 p.m.: I think patient meets criteria for an M1 hold as she endorses active suicidal ideation. I have discussed this with her and she is in agreement she thinks she needs to be on M1 hold as well. 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 Patient was placed on M1 hold. Will obtain usual and customary laboratory studies and consult with mental health telephone directory distributor driver. I saw this patient independently based on established practice protocols. Care of patient under supervision of secondary supervising physician Dr Avilez . Midnight: Patient revaluated with serial exams. At this time, care turned over to Dr Salmon. Patient calm, cooperative, resting comfortably. (Mahesh Boss) Signed over to Dr. Joe at 7am (Jamal Salmon) 8:40 a.m. mental health has evaluated the patient. She is contracted for safety. She will follow up with their outpatient counseling center Dr. Chaudhari. They have left the hold. (Shaq Joe) - Data Points Laboratory Results: Laboratory Results 04/11/18 22:02 04/11/18 22:02 1004/11/18 04/11/18 22:02 22:02 22:02 WBC 9.33 10^3/uL 10^3/uL (3.80-9.50) RBC 4.24 10^6/uL 10^6/uL (4.18-5.33) Hgb 12.8 g/dL g/dL (12.6-16.3) Hct 38.4 % % (38.0-47.0) MCV 90.6 fL fL (81.5-99.8) MCH 30.2 pg pg (27.9-34.1) MCHC 33.3 g/dL g/dL (32.4-36.7) RDW 13.2 % % (11.5-15.2) Plt Count 276 10^3/uL 10^3/uL (150-400) MPV 9.3 fL fL (8.7-11.7) Neut % (Auto) 59.6 % % (39.3-74.2) Lymph % (Auto) 29.7 % % (15.0-45.0) [place] % (Auto) 5.0 % % (4.5-13.0) Eos % (Auto) 4.5 % % (0.6-7.6) Baso % (Auto) 0.9 % % (0.3-1.7) Nucleat RBC Rel Count 0.0 % % (0.0-0.2) Absolute Neuts (auto) 5.56 10^3/uL 10^3/uL (1.70-6.50) Absolute Lymphs (auto) 2.77 10^3/uL 10^3/uL (1.00-3.00) Absolute Monos (auto) 0.47 10^3/uL 10^3/uL (0.30-0.80) Absolute Eos (auto) 0.42 10^3/uL H 10^3/uL (0.03-0.40) Absolute Basos (auto) 0.08 10^3/uL 10^3/uL (0.02-0.10) Absolute Nucleated RBC 0.00 10^3/uL 10^3/uL (0-0.01) Immature Gran % 0.3 % % (0.0-1.1) Immature Gran # 0.03 10^3/uL 10^3/uL (0.00-0.10) Sodium 141 mEq/L mEq/L (135-145) Potassium 3.8 mEq/L mEq/L (3.3-5.0) Chloride 106 mEq/L mEq/L (97-110) Carbon Dioxide 25 mEq/l mEq/l (22-31) Anion Gap 10 mEq/L mEq/L (8-16) BUN 9 mg/dL mg/dL (7-23) Creatinine 0.7 mg/dL mg/dL (0.6-1.0) Estimated GFR > 60 Glucose 88 mg/dL mg/dL (70-100) Calcium 9.2 mg/dL mg/dL (8.5-10.4) Beta HCG, Qual NEGATIVE Urine Opiates Screen Urine Barbiturates Ur Phencyclidine Scrn Ur Amphetamine Screen U Benzodiazepines Scrn Urine Cocaine Screen U Marijuana (THC) Screen Ethyl Alcohol 161 mg/dL H mg/dL (0-10) 04/11/18 21:38 WBC RBC Hgb Hct MCV MCH MCHC RDW Plt Count MPV Neut % (Auto) Lymph % (Auto) [place] % (Auto) Eos % (Auto) Baso % (Auto) Nucleat RBC Rel Count Absolute Neuts (auto) Absolute Lymphs (auto) Absolute Monos (auto) Absolute Eos (auto) Absolute Basos (auto) Absolute Nucleated RBC Immature Gran % Immature Gran # Sodium Potassium Chloride Carbon Dioxide Anion Gap BUN Creatinine Estimated GFR Glucose Calcium Beta HCG, Qual Urine Opiates Screen NEGATIVE (NEGATIVE) Urine Barbiturates NEGATIVE (NEGATIVE) Ur Phencyclidine Scrn NEGATIVE (NEGATIVE) Ur Amphetamine Screen NEGATIVE (NEGATIVE) U Benzodiazepines Scrn NEGATIVE (NEGATIVE) Urine Cocaine Screen NEGATIVE (NEGATIVE) U Marijuana (THC) Screen NEGATIVE (NEGATIVE) Ethyl Alcohol Medications Given: Discontinued Medications Ibuprofen (Motrin) 600 mg PO EDNOW ONE Stop: 04/12/18 02:44 Last Admin: 04/12/18 02:44 Dose: 600 mg Lorazepam (Ativan) 1 mg PO EDNOW ONE Stop: 04/11/18 22:14 Last Admin: 04/11/18 22:14 Dose: 1 mg Trazodone HCl (Trazodone) 150 mg PO EDNOW ONE Stop: 04/11/18 22:13 Last Admin: 04/11/18 22:14 Dose: 150 mg Departure - Departure Disposition: Home, Routine, Self-Care Clinical Impression: Depression Condition: Fair Instructions: Depression (ED) Referrals: RACHEL LEIJA [Primary Care Provider] - As per Instructions SHAKIR MACDONALD [Non Staff Provider (MD)] - As per Instructions
[2018-04-11] MEDS ORDERED: traZODone 50 MG TAB PO ONE (22:12)
[2018-04-11] MEDS ORDERED: LORazepam 1 MG TAB PO ONE (22:13)
[2018-04-11 22:36] LABS: PLATELET COUNT 276 10^3/uL (150-400)
[2018-04-12] MEDS ORDERED: IBUPROFEN 600 MG TAB PO ONE ×3 (02:40→08:48)
[2018-04-12 09:07] VITALS: BP 102/66
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
--- NOTE | 2018-04-12 09:35 | ASMTTCLDSP ---
TLC Discharge Disposition Disposition: Answers: Discharge If Answers: Yes DISCHARGED: Patient/family given suicide hotline info & [facility] brochure? Disposition Notes: Notes: Pt stated commitment or ability to keep self safe, denied thoughts of self harm or harm to others. Pt expressed a desire to f/u with [facility] Outpatient Counseling services. Pt was given local hotline information and [facility] brochure After an Attempt and encouraged to follow up with [facility] Outpatient Counseling services. Discharge Concerns/Recommendations: Notes: In consultation with [facility] ED physician, Shaq Joe MD, Dr. Joe concurred that pt does not appear to meet 27-65 criteria requiring psychiatric hospitalization as pt does not appear to be an imminent risk of harm to self/others/gravely disabled due to a mental illness condition. Dr. Joe provided verbal order read back vacating M1 hold at 0845 hrs. Was patient given the Answers: Not applicable Inpatient Behavioral Health Prohibited Belongings List while in the ED? Psychiatrist vacating M1 Shaq Joe MD Hold: Date and time M1 hold 04/12/2018 08:45 AM vacated (time format is hh:mm): Type of Hold: Answers: M1/72-hour Hold Hold initiated by: Answers: ED Physician Date Signed: 04/12/2018 09:34 AM Electronically Signed By:Ron Dudley
== END 2018-04-12 09:07 | disposition home or self-care (01) ==
DX: F32.9 Major depressive disorder, single episode, unspecified (principal); F41.9 Anxiety disorder, unspecified; R45.851 Suicidal ideations
CPT/HCPCS: 80305; G0480

== ENCOUNTER 2018-04-19 10:01 | Emergency (ER) | payer OTHER ==
[2018-04-19] MEDS ORDERED: ONDANSETRON 4 MG/2 ML VIAL IVP ONE (10:30)
[2018-04-19] MEDS ORDERED: NS 1,000 ML IV ONE ×2 (10:31→10:43)
[2018-04-19] MEDS ORDERED: KETOROLAC 15 MG/1 ML SDV IVP ONE (10:43)
--- NOTE | 2018-04-19 10:48 | EDPHY ---
H & P Stated Complaint: SCHROEDER Time Seen by Provider: 04/19/18 10:27 HPI/ROS: CHIEF COMPLAINT: Frontal headache x6 days HISTORY OF PRESENT ILLNESS: 42-year-old female history of chronic depression, anxiety, Lyme disease, no history of chronic headache, complaining of 6 days of non thunderclap bifrontal headache as well as feeling "out of it". The initial triage note describes"dizziness"however upon further conversation with the patient she denies dizziness or vertigo but does fee "out of it" . she recently had her antidepressant medications changed few weeks ago. For pain relief she has been ingesting monotherapy with "a lot of Tylenol" which has not alleviated her symptoms. She denies suicidal or homicidal ideation. Denies hallucination. Denies gait instability primary denies slurred speech. Denies vomiting. REVIEW OF SYSTEMS: 10 systems reviewed and negative with the exception of the elements mentioned in the history of present illness PAST MEDICAL & SURGICAL HISTORY: Depression. Anxiety. Lyme disease. SOCIAL HISTORY:Nonsmoker. No drug use. 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 PHYSICAL EXAM (Prior to examination, patient consented to physical exam, hands were washed and my usual and customary physical exam procedures followed) 1) GENERAL: Well-developed, well-nourished, alert and oriented. Appears nontoxic answering questions appropriately sitting in a darkened room. 2) HEAD: Normocephalic, atraumatic 3) HEENT: Pupils equal, round, reactive to light bilaterally. Sclera anicteric. Nasopharynx, oropharynx, clear, no lesions. Moist Mucous membranes. Ears bilaterally with normal tympanic membranes. No signs of otitis media or otitis externa. No tenderness to percussion over the frontal or maxillary sinuses. 4) NECK: Full range of motion, no meningeal signs. 5) LUNGS: Clear auscultation bilaterally, no wheezes, no rhonchi, no retractions. 6) HEART: Regular rate and rhythm, no murmur, no heave, no gallop. 7) ABDOMEN: No guarding, no rebound, no focal tenderness, negative McBurney's, negative Dominguez's, negative Rovsing's, negative peritoneal sign, 8) MUSCULOSKELETAL: Moving all extremities, no focal areas of tenderness, no obvious trauma. No peripheral edema or discoloration. 9) BACK: No CVA tenderness, no midline vertebral tenderness, no fluctuance, no step-off, no obvious trauma, no visual or palpable abnormality. 10) SKIN: No rash, no petechiae. 11) Psychiatric: Patient is oriented X 3, there is no agitation. 12) NEURO: Awake, alert, and oriented to person, place and time. Answers questions appropriately. There were no obvious focal neurologic abnormalities. No cerebellar dysfunction. Cranial nerves 2 through to 12 intact. Normal steady gait. Upper and lower extremities bilaterally with strength 5 / 5, reflexes 2+. DIFFERENTIAL DIAGNOSIS: In no particular order, including but not limited to subarachnoid hemorrhage, migraine headache, tension headache and infectious causes such as meningitis, pharyngitis and sinusitis. The patient understands that this diagnosis is provisional and can never be 100% accurate. Usual and customary warnings were given concerning the clinical impression and all the patient's questions were answered. The patient was instructed to return to the emergency department should her symptoms worsen or return, or develop any new symptoms, otherwise to followup as directed in discharge instructions. This is a partial list of diagnoses considered. These considerations are based on history, physical exam, past history and reassessment. - Personal History LMP (Females 10-55): 1-7 Days Ago Current Tetanus/Diphtheria Vaccine: Yes Current Tetanus Diphtheria and Acellular Pertussis (TDAP): Yes - Medical/Surgical History Hx Asthma: No Hx Chronic Respiratory Disease: No Hx Diabetes: No Hx Cardiac Disease: No Hx Renal Disease: No Hx Cirrhosis: No Hx Alcoholism: No Hx HIV/AIDS: No Hx Splenectomy or Spleen Trauma: No Other PMH: PMHx: Pancreatitis-Apr 2014, depression, anxiety, Lyme disease. PSH: dental surgeries - Social History Smoking Status: Former smoker Constitutional: Initial Vital Signs Temperature (C) 36.6 C 04/19/18 10:05 Heart Rate 75 04/19/18 10:05 Respiratory Rate 16 04/19/18 10:05 Blood Pressure 103/77 04/19/18 10:05 O2 Sat (%) 97 04/19/18 10:05 O2 Delivery Mode Room Air Allergies/Adverse Reactions: penicillin G [Penicillin G] Allergy (Mild, Verified 04/19/18 10:04) Rash Sulfa (Sulfonamide Antibiotics) Allergy (Mild, Verified 04/19/18 10:04) itchy Home Medications: Medication Instructions Recorded Contrave ER 8-90 mg Tablet 03/23/18 traZODone 04/11/18 Medical Decision Making - Diagnostics Imaging Results: Imaging Impressions Head CT 04/19/18 10:44 Impression: 1. Normal CT brain without contrast. 2. No sinusitis. Findings and recommendations discussed with Emergency Department physicianMahesh at 11:26 hour, 04/19/2018. Final report concurs with initial preliminary interpretation. ED Course/Re-evaluation: 10:47 a.m.: Patient has a nonfocal exam. She does note that she has been consuming large amounts of acetaminophen for headache relief however not for self-injurious purposes. Will obtain diagnostic studies including acetaminophen and LFTs as well as order CT imaging of the head. Patient describes concerns over possible malignancy. At this time I do not think that MRI definitively indicated. Indications risks benefits of imaging discussed with patient she consents. I saw this patient independently based on established practice protocols. Care of patient under supervision of secondary supervising physician Dr Eduardo Clinton with whom I discussed case 11:50 a.m.: CT head negative. Re-examination She remains with a nonfocal exam. She has had no relief with IV Toradol. She drove herself to the [facility]., I had a lengthy discussion with the patient at this time. She admits that she has previously received IV Haldol for abdominal pain and she did not like the way it made her feel. I have offered IV ketamine at 0.2 milligrams/kilogram however she will need to leave her vehicle at the hospital. She is agreeable with this. 1:10 p.m.: Re-evaluation. Remains with a nonfocal exam. She is feeling some improvement but notes continued headache. We discussed further options. She would like to be discharged. She requests an oral dose of medication prior to discharge as this may last longer. She states that she is responded well to Percocet in the past . She is currently taking Contrave for weight loss which does contain naltrexone. She has not taken his dose today. She has been informed that this medication contains an opioid antagonist. She still would like to move forward a single dose which I have given her. I am not given her prescription at discharge. I think that subarachnoid hemorrhage, intracranial mass, malignancy, less than likely in this patient at this time. - Data Points Laboratory Results: Laboratory Results 04/19/18 10:30 04/19/18 10:30 04/19/18 04/19/18 04/19/18 10:30 10:30 10:30 WBC 6.76 10^3/uL 10^3/uL (3.80-9.50) RBC 4.50 10^6/uL 10^6/uL (4.18-5.33) Hgb 13.4 g/dL g/dL (12.6-16.3) Hct 40.1 % % (38.0-47.0) MCV 89.1 fL fL (81.5-99.8) MCH 29.8 pg pg (27.9-34.1) MCHC 33.4 g/dL g/dL (32.4-36.7) RDW 12.8 % % (11.5-15.2) Plt Count 254 10^3/uL 10^3/uL (150-400) MPV 9.3 fL fL (8.7-11.7) Neut % (Auto) 60.4 % % (39.3-74.2) Lymph % (Auto) 29.4 % % (15.0-45.0) Lake % (Auto) 5.0 % % (4.5-13.0) Eos % (Auto) 3.7 % % (0.6-7.6) Baso % (Auto) 1.2 % % (0.3-1.7) Nucleat RBC Rel Count 0.0 % % (0.0-0.2) Absolute Neuts (auto) 4.08 10^3/uL 10^3/uL (1.70-6.50) Absolute Lymphs (auto) 1.99 10^3/uL 10^3/uL (1.00-3.00) Absolute Monos (auto) 0.34 10^3/uL 10^3/uL (0.30-0.80) Absolute Eos (auto) 0.25 10^3/uL 10^3/uL (0.03-0.40) Absolute Basos (auto) 0.08 10^3/uL 10^3/uL (0.02-0.10) Absolute Nucleated RBC 0.00 10^3/uL 10^3/uL (0-0.01) Immature Gran % 0.3 % % (0.0-1.1) Immature Gran # 0.02 10^3/uL 10^3/uL (0.00-0.10) Sodium 137 mEq/L mEq/L (135-145) Potassium 4.3 mEq/L mEq/L (3.3-5.0) Chloride 104 mEq/L mEq/L (97-110) Carbon Dioxide 23 mEq/l mEq/l (22-31) Anion Gap 10 mEq/L mEq/L (8-16) BUN 14 mg/dL mg/dL (7-23) Creatinine 0.7 mg/dL mg/dL (0.6-1.0) Estimated GFR > 60 Glucose 85 mg/dL mg/dL (70-100) Calcium 9.2 mg/dL mg/dL (8.5-10.4) Total Bilirubin 0.4 mg/dL mg/dL (0.1-1.4) Conjugated Bilirubin 0.2 mg/dL mg/dL (0.0-0.5) Unconjugated Bilirubin 0.2 mg/dL mg/dL (0.0-1.1) AST 19 IU/L IU/L (14-46) ALT 20 IU/L IU/L (9-52) Alkaline Phosphatase 60 IU/L IU/L (38-126) Total Protein 7.4 g/dL g/dL (6.3-8.2) Albumin 4.3 g/dL g/dL (3.5-5.0) Beta HCG, Qual NEGATIVE Acetaminophen < 10 mcg/mL L mcg/mL (10-30) Medications Given: Discontinued Medications Sodium Chloride (Ns) 1,000 mls @ 0 mls/hr IV EDNOW ONE; Wide Open PRN Reason: Protocol Stop: 04/19/18 10:32 Last Admin: 04/19/18 10:34 Dose: 1,000 mls Sodium Chloride (Ns) 1,000 mls @ 0 mls/hr IV ONCE ONE PRN Reason: Wide Open Stop: 04/19/18 10:44 Last Admin: 04/19/18 10:52 Dose: 1,000 mls Ketamine HCl (Ketamine) 10 mg IVP EDNOW ONE Stop: 04/19/18 11:58 Last Admin: 04/19/18 12:15 Dose: 10 mg Ketorolac Tromethamine (Toradol) 15 mg IVP EDNOW ONE Stop: 04/19/18 10:44 Last Admin: 04/19/18 10:52 Dose: 15 mg Ondansetron HCl (Zofran) 4 mg IVP EDNOW ONE Stop: 04/19/18 10:31 Last Admin: 04/19/18 10:35 Dose: 4 mg Oxycodone/Acetaminophen (Percocet 5/325) 1 tab PO EDNOW ONE Stop: 04/19/18 13:16 Last Admin: 04/19/18 13:27 Dose: 1 tab Departure - Departure Disposition: Home, Routine, Self-Care Clinical Impression: Head ache Qualifiers: Headache type: unspecified Headache chronicity pattern: acute headache Intractability: not intractable Qualified Code(s): R51 - Headache Condition: Good Instructions: Acute Headache (ED) Additional Instructions: THANK YOU FOR YOUR VISIT TO OUR EMERGENCY DEPARTMENT (ED). YOU WERE SEEN TODAY BECAUSE OF A HEADACHE. YOU MAY HAVE HAD LAB TESTS, A CT SCAN, MRI OR EVEN A LUMBAR PUNCTURE (COMMONLY REFERRED TO A SPINAL TAP). WE CANNOT ALWAYS FIND THE EXACT CAUSE OF YOUR SYMPTOMS DURING YOUR VISIT TO THE ED. PLEASE FOLLOW UP WITH YOUR DOCTOR WITHIN 24 HOURS TO BE RECHECKED. RETURN TO THE ED IMMEDIATELY IF YOUR HEADACHE WORSENS, IF YOU DEVELOP A FEVER, NECK PAIN OR NECK STIFFNESS, OR IF YOU BECOME CONFUSED OR ABNORMALLY DROWSY. Referrals: RACHEL LEIJA [Primary Care Provider] - 2-3 days, call for appt.
[2018-04-19 11:22] LABS: PLATELET COUNT 254 10^3/uL (150-400)
[2018-04-19] MEDS ORDERED: KETAMINE 200 MG/20 ML VIAL IVP ONE (11:57)
[2018-04-19] MEDS ORDERED: OXYCODONE/APAP 5/325 TAB PO ONE (13:15)
[2018-04-19 13:39] VITALS: BP 125/80
== END 2018-04-19 13:40 | disposition home or self-care (01) ==
DX: R51 Headache (principal); E86.9 Volume depletion, unspecified; F32.9 Major depressive disorder, single episode, unspecified; F41.9 Anxiety disorder, unspecified; A69.20 Lyme disease, unspecified; Z87.891 Personal history of nicotine dependence
CPT/HCPCS: 96374; G0480; J1885; J2405

== ENCOUNTER → 2018-08-15 | Outpatient (CLI) | payer OTHER | LOC: FIMAGING 11:20 | DX: N63.23 Unspecified lump in the left breast, lower outer quadrant (principal); N63.21 Unspecified lump in the left breast, upper outer quadrant ==

== ENCOUNTER → 2018-08-29 | Outpatient (CLI) | payer OTHER ==
[~2018-08-29] MED LIST: BUPIVACAINE 0.5% 30 ML SDV ONE; LIDOCAINE 1% 300 MG/30 ML SDV ONE
== END ==
LOC: FIMAGING 07:15
DX: R92.8 Other abnormal and inconclusive findings on diagnostic imaging of breast (principal); Z53.8 Procedure and treatment not carried out for other reasons